=== PATIENT | male | born 1955 | race Caucasian/White ===

== ENCOUNTER 2016-09-13 15:23 | Emergency (ER) | payer MEDICARE ==
[2016-09-13 16:20] LABS: #Basophils 0.1 thou/uL (0.0-0.2); #Eosinphils 0.1 thou/uL (0.0-0.7); #Lymphocytes 1.2 thou/uL (1.20-3.40); #Monocytes 0.8 thou/uL (0.11-0.59); #Neutrophils 6.5 thou/uL (1.40-6.50); %Basophils 1.6 % (0.0-1.0); %Lymphocytes 13.6 % (21.0-51.0); %Monocytes 8.6 % (0.0-10.0); Hematocrit 44.8 % (42.0-52.0); Red Blood Cell (RBC) Count 5.22 mill/uL (4.70-6.10); White Blood Cell (WBC) Count 8.7 thou/uL (4.8-10.8)
[2016-09-13 16:34] LABS: ALT (SGPT) 33 U/L (0-55); AST (SGOT) 23 U/L (5-34); Alkaline Phosphatase 139 U/L (40-150); Anion Gap 16 mmol/L (10-20); BUN (Urea Nitrogen) 48 mg/dL (8.4-25.7); Bilirubin, Total 0.8 mg/dL (0.2-1.2); Calc. Creatinine Clearance 0 mL/min (70-130); Calcium 8.9 mg/dL (7.8-10.44); Carbon Dioxide 19 mmol/L (22-29); Chloride 102 mmol/L (98-107); Estimated GFR-MDRD 35; Globulin 3.4 g/dL (2.4-3.5); Protein, Total 6.9 g/dL (6.0-8.3)
[2016-09-13 17:04] LABS: Bilirubin Negative (Negative); Blood, Urine Trace (Negative); Glucose, Urine (Dipstick) 500 mg/dL (Negative); Ketone, Urine Negative (Negative); Nitrite Negative (Negative); Protein, Urine (Dipstick) > or equal to 300 mg/dL (Neg-Trace); Urobilinogen 0.2 mg/dL (0.2-1.0)
[2016-09-13 17:09] LABS: Bacteria/HPF Rare-Few HPF (None Seen); Squamous Epithelial None Seen HPF (0-3); WBC/HPF None Seen HPF (0-3)
[2016-09-13] MEDS ORDERED: Insulin Regular 300 UNITS/3 ML VIAL ONE (17:50)
--- NOTE | 2016-09-13 17:56 | RAD ---
PORTABLE CHEST: History: Dyspnea. FINDINGS: Heart size is borderline in size. Post op sternotomy changes are noted. A pacemaker is present. T he lungs are clear of infiltrates. IMPRESSION: Borderline heart size. No acute process. POS: [facility]
[2016-09-13 18:38] LABS: Troponin I 0.094 ng/mL (< 0.028)
--- NOTE | 2016-09-13 19:16 | ERRECORD ---
[facility] EMERGENCY RECORD HPI GENERAL (15:41 AGRE) CHIEF COMPLAINT: Patient presents for evaluation of SWELLING AND PAIN IN LEGS, HIGH BLOOD SUGAR. HISTORIAN: History provided by patient, History provided by patient's spouse, HOSPITALIZED FOR 1 WEEK ALL OF LAST WEEK DISCHARGED ON TUESDAY. WAS AT [facility]. HAD ALL HIS MEDS CHANGED BUT DOES NOT KNOW THE NAME OF THE NEW MEDS AND WHAT HE IS TAKING IT FOR. HAS SWELLING OF LEGS PRIOR RO ADMISSION TO HOSPITAL AND THE SWELLING HAD GONE DOWN BUT HAS COME BACK OVER THE PAST 2 DAYS. SAYS HIS BLOOD SUGAR HAS BEEN HIGH AND THE NEW MEDICATIONS ARE NOT WORKING. DID NOT CALL HIS PCP TODAY FOR FOLLOW UP. BUT CAME BACK TO ED BECAUSE WANTS TO BE IN THE HOSPITAL. MECHANISM OF INJURY: Unknown mechanism. LOCATION: No localizing symptoms. QUALITY: Pain is dull in nature, described as aching, described as BOTH LOWER LEGS OTHERWISE NO PAIN. SEVERITY: Maximum severity of symptoms moderate, Currently symptoms are moderate. TIME COURSE: Gradual onset of symptoms. ASSOCIATED WITH: No associated symptoms, Denies any other complaints. EXACERBATED BY: Patient's condition exacerbated by nothing. RELIEVED BY: Patient's condition relieved by nothing. ROS (15:44 AGRE) CONSTITUTIONAL: Historian denies chills, denies fever, denies weakness. EYES: Historian denies eye redness, denies vision changes. ENT: Historian denies sore throat, denies stridor. CARDIOVASCULAR: Historian denies chest pain, denies diaphoresis. RESPIRATORY: Historian denies cough, denies shortness of breath. GI: Historian denies abdominal pain, denies nausea, denies vomiting. MUSCULOSKELETAL: Historian denies back pain, denies neck pain. SWELLING OF FEET AND LEGS. SKIN: Historian denies skin changes, denies skin lesions. NEUROLOGIC: Historian denies confusion, denies dizziness, denies focal weakness, denies headache. HEMO/LYMPHATIC: Normal hematologic/lymphatic system review, Historian denies petechiae. PSYCHIATRIC: Negative psychiatric review of systems, Historian denies anxiety. PAST MEDICAL HISTORY (15:37 GHIA) MEDICAL HISTORY: Notes: as listed, , Past medical history includes cardiac history, myocardial infarction, Treated with stent placement, Number of stents: 1, since 2008, Past medical history includes history of diabetes, Past medical history includes history of hypertension. verified 09/04/16. MALE SURGICAL HISTORY: as listed, Surgical &a-1R&a+25V*p+0X*[id number]*c152B*c15G*c2P*p-0X&a-25V&a+1RName: Lito Walton : M60 MedRec: [id number] AcctNum: [id number] Prepared: TueSep 13, 2016 19:32 by Interface Page 1 of 5 pMD [facility] EMERGENCY RECORD history of coronary artery bypass graft surgery, three vessels, Date of surgery 2009., pacemaker placed due to heart failure in 2013 verified 09/04/16. PSYCHIATRIC HISTORY: No previous psychiatric history, No previous psychiatric history. verified 09/04/16. SOCIAL HISTORY: Social History includes lives with , Patient denies alcohol use, Patient denies drug use, Patient has no smoking history, Patient denies alcohol use, Patient denies drug use, Patient has no smoking history. verified 09/04/16. KNOWN ALLERGIES morphine Penicillins CURRENT MEDICATIONS glyBURIDE: TABLET : Strength - 5 mg : ORAL Patient Dose: 10 mg Oral once a day (in the morning).Last Taken: this a.m. (16:37 GHIA) hydrALAZINE: TABLET : Strength - 50 mg : ORAL Patient Dose: 50 mg Oral 3 times a day.Last Taken: this a.m. (16:38 GHIA) carvedilol: TABLET : Strength - 6.25 mg : ORAL Patient Dose: 6.25 mg Oral 2 times a day.Last Taken: this a.m. (16:39 GHIA) spironolactone: TABLET : Strength - 50 mg : ORAL Patient Dose: 50 mg Oral once a day (in the morning).Last Taken: this a.m. (16:43 GHIA) isosorbide dinitrate: TABLET : Strength - 20 mg : ORAL Patient Dose: 20 mg Oral 3 times a day.Last Taken: this a.m. (16:44 GHIA) furosemide: TABLET : Strength - 40 mg : ORAL Patient Dose: 40 mg Oral 2 times a day.Last Taken: this a.m. (16:45 GHIA) Aspirin Low Dose: TABLET, DELAYED RELEASE (ENTERIC COATED) : Strength - 81 mg : ORAL Patient Dose: 81 mg Oral once a day (in the morning).Last Taken: this a.m. (16:47 GHIA) pantoprazole: TABLET, DELAYED RELEASE (ENTERIC COATED) : Strength - 40 mg : ORAL Patient Dose: 40 mg Oral once a day (in the morning).Last Taken: this a.m. (16:49 GHIA) atorvastatin: TABLET : Strength - 10 mg : ORAL Patient Dose: 10 mg Oral once a day (at bedtime).Last &a-1R&a+25V*p+0X*[id number]*c152B*c15G*c2P*p-0X&a-25V&a+1RName: Lito Walton : M60 MedRec: [id number] AcctNum: [id number] Prepared: TueSep 13, 2016 19:32 by Interface Page 2 of 5 pMD [facility] EMERGENCY RECORD Taken: last night. (16:50 GHIA) Stool Softener: CAPSULE : Strength - 100 mg : ORAL Patient Dose: 100 mg Oral once a day (in the morning).Last Taken: this a.m. (16:50 GHIA) VITAL SIGNS VITAL SIGNS: BP: 141/88, Pulse: 97, Resp: 18, Pain: 5, O2 sat: 99 on RA, Time: 09/13/2016 15:38. (15:38 GHIA) Temp: 98.2 (Oral), Time: 09/13/2016 15:41. (15:41 GHIA) BP: 146/96, Pulse: 95, Resp: 19, O2 sat: 98 on Room Air, Time: 09/13/2016 16:30. (16:30 MSPE) BP: 140/95, Pulse: 96, Resp: 15, O2 sat: 97 on Room Air, Time: 09/13/2016 17:00. (17:00 MSPE) BP: 153/94, Pulse: 94, Resp: 15, O2 sat: 98 on Room Air, Time: 09/13/2016 17:30. (17:30 MSPE) BP: 160/99, Pulse: 99, Resp: 19, Temp: 98.5 (Oral), Pain: 5, O2 sat: 97 on Room Air, Time: 09/13/2016 18:00. (18:00 [facility]) PHYSICAL EXAM (15:44 AGRE) CONSTITUTIONAL: Vital signs reviewed, Patient afebrile, Respiratory rate normal, Patient appears non toxic, Patient appears pain free, Patient alert and oriented to person, place and time, NURSES NOTES REVIEWED. HEAD: Head exam included findings of head atraumatic, normocephalic. EYES: Eye exam included findings of eyelids normal to inspection, Extraocular muscles intact, Conjunctiva normal, Sclera normal. ENT: Ear exam normal, Nose exam normal, Mouth exam normal. NECK: Neck exam normal, Neck exam included findings of normal range of motion, no meningeal signs, no cervical adenopathy. RESPIRATORY CHEST: Respiratory and chest exam normal, Respiratory exam included findings of no respiratory distress, Breath sounds clear, No wheezing, No rales, No rhonchi, Breath sounds not diminished. CARDIOVASCULAR: Cardiovascular exam included findings of, rate tachycardic, rhythm regular, Heart sounds normal, normal S1, normal S2, no murmurs, no rub, no gallop, Point of maximal impulse normal, Carotids normal. ABDOMEN MALE: Abdominal exam normal, Abdominal exam included findings of abdomen nontender, Bowel sounds normal, Liver normal, Spleen normal, no distension, no mass. BACK: Back exam normal, Back exam included findings of normal inspection, range of motion normal. UPPER EXTREMITY: Upper extremity exam included findings of inspection normal, Range of motion normal. LOWER EXTREMITY: Range of motion normal, Motor strength normal, Sensation intact, Pedal pulse normal, Viridiana's negative, Edema present, to bilateral lower extremities, pitting, +3, no calf tenderness, no palpable cords. &a-1R&a+25V*p+0X*[id number]*c152B*c15G*c2P*p-0X&a-25V&a+1RName: Lito Walton : M60 MedRec: [id number] AcctNum: [id number] Prepared: TueSep 13, 2016 19:32 by Interface Page 3 of 5 pMD [facility] EMERGENCY RECORD NEURO: Neuro exam normal, Neuro exam findings include patient oriented to person, place and time, Speech normal, Gait normal, Memory normal, Cranial nerves intact, no focal motor deficits. SKIN: Skin exam normal, Skin exam included findings of skin warm, dry, and normal in color. LYMPHATIC: Lymphatic exam normal, Lymphatic exam included findings of cervical nodes normal. PSYCHIATRIC: Psychiatric exam normal, Normal affect. EKG INTERPRETATION (15:53 AGRE) 12 LEAD EKG INTERPRETATION: 12 lead EKG interpreted by Emergency Department Physician at time of study, 12 lead EKG shows normal sinus rhythm, Rate (beats per minute): 96, Conduction normal, T waves, [place] normal, Other findings include:, LEFT ATRIAL ENLARGEMENT, SMALL Q WAVE INFERIORLY, POOR R WAVE PROGRESSION V1 - 4, R'R V2, NON-SPECIFIC ST AND T CHANGES. RADIOLOGYINTERPRETATION (18:08 AGRE) BUCKLE COVERER: Preliminary review of x-rays by, Radiologist, CARDIOMEGALY. MEDICATION ADMINISTRATION SUMMARY Drug Name: NovoLIN R, Dose Ordered: 8 units, Route: Subcutaneous, Status: Given, Time: 17:59 09/13/2016, Detailed record available in Medication Service section. DOCTOR NOTES TEXT: DISCUSSED CASE WITH DR ONTIVEROS WHO WANTS HIM RETURNED TO [facility] FOR ADMISSION AND RE-EVALUATION. (18:10 AGRE) DISCUSSED RESULTS OF ED EXAM AND WORK UP WITH PATIENT AND FAMILY, DISCUSSED RETURNING TO [facility] FOR FURTEHR EVALUATION, THEY EXPRESSED UNDERSTANDING AND AGREEMENT. (18:10 AGRE) CASE DISCUSSED WITH DR CELESTIN WHO WILL ACCEPT PATIENT TO [facility]. (18:12 AGRE) PATIENT STATUS: Patient has improved since arrival to emergency department. (18:12 AGRE) PATIENT PLAN: The patient requires a transfer and will be transferred. (18:12 AGRE) DATA REVIEWED: Lab data reviewed, Xray data reviewed, Reviewed EKG, Old records obtained, Old records reviewed, Discussed with family, Discussed with consultants. (18:12 AGRE) PROBLEM LIST No recorded problems DIAGNOSIS (18:07 AGRE) FINAL: PRIMARY: RIGHT HEART FAILURE, ADDITIONAL: CHRONIC RENAL INSUFFICIENCY, ELEVATED D-DIMER, PERIPHERAL EDEMA, UNCONTROLLED TYPE 2 DIABETES. &a-1R&a+25V*p+0X*[id number]*c152B*c15G*c2P*p-0X&a-25V&a+1RName: Isabelle, Lito : M60 MedRec: [id number] AcctNum: [id number] Prepared: TueSep 13, 2016 19:32 by Interface Page 4 of 5 pMD [facility] EMERGENCY RECORD PRESCRIPTION No recorded prescriptions DISPOSITION PATIENT: Disposition Type: Transfer, Disposition: Transfer to [facility], Condition: Good. (18:04 AMOS) Patient left the department. (19:05 VLADISLAV) Lee: AMOS=MD Dread, Maikel LOOMIS=VANESSA Clemente, Ashley MSPE=VANESSA Herman, Valeria &a-1R&a+25V*p+0X*[id number]*c152B*c15G*c2P*p-0X&a-25V&a+1RName: Lito Walton : M60 MedRec: [id number] AcctNum: [id number] Prepared: TueSep 13, 2016 19:32 by Interface Page 5 of 5 pMD [facility]TDD
--- NOTE | 2016-09-13 19:23 | PICIS ---
[facility] EMERGENCY RECORD TRIAGE (15:31 GHIA) TRIAGE NOTES: Pt states sugar is high and BP high....recent discharge from [place]. (15:31 GHIA) PATIENT: NAME: Lito Walton, AGE: 60, GENDER: male, : Tue1955, TIME OF GREET: TueSep 13, 2016 15:24, PREFERRED LANGUAGE: Guyanese, ETHNICITY: Not or , ECODE BILLING MAP: [facility], SSN: [id number], Zip Code: [address], KG WEIGHT: 58.97, PHONE: , , , PERSON ID: [id number], PCP: Darrius RODRIGUEZ POLLACHI. (15:31 GHIA) COMPLAINT: BILATERAL LEG AND FEET SWELLING,ELEVATED BS AND BP. (15:31 GHIA) ADMISSION: URGENCY: 3 Urgent, ADMISSION SOURCE: Home, TRANSPORT: Walk-in, BED: TRIAGE. (15:31 GHIA) ASSESSMENT: Assessment: Pt with high sugar and high BP, Symptoms began 3 days ago. (15:37 GHIA) PAIN: Patient complains of pain described as, Location legs, Pain is constant. (15:37 GHIA) IMMUNIZATIONS: Flu vaccine up to date, Tetanus immunization up to date, Pneumococcal vaccine up to date. (15:37 GHIA) SIRS SCORING: Heart Rate 55-109 (0), Temp range 96.8-101.1 (0), respiratory rate 12-24 (0), Mental Status altered: no (0). (15:37 GHIA) TRIAGE SCREENING: Patient denies suicidal ideation, Patient denies presence of domestic violence. (15:37 GHIA) TREATMENTS IN PROGRESS: Treatments given Prehospital: Pt took morning meds. (15:37 GHIA) PROVIDERS: TRIAGE NURSE: Ashley Clemente RN. (15:31 GHIA) KNOWN ALLERGIES morphine Penicillins CURRENT MEDICATIONS glyBURIDE: TABLET : Strength - 5 mg : ORAL Patient Dose: 10 mg Oral once a day (in the morning).Last Taken: this a.m. (16:37 GHIA) hydrALAZINE: TABLET : Strength - 50 mg : ORAL Patient Dose: 50 mg Oral 3 times a day.Last Taken: this a.m. (16:38 GHIA) carvedilol: TABLET : Strength - 6.25 mg : ORAL Patient Dose: 6.25 mg Oral 2 times a day.Last Taken: this a.m. (16:39 GHIA) spironolactone: TABLET : Strength - 50 mg : ORAL Patient Dose: 50 mg Oral once a day (in the morning).Last Taken: this a.m. (16:43 GHIA) isosorbide dinitrate: &a-1R&a+25V*p+0X*o0879O*c152B*c15G*c2P*p-0X&a-25V&a+1RName: Isabelle Lito : M60 MedRec: [id number] AcctNum: [id number] Prepared: TueSep 13, 2016 19:39 by Interface Page 1 [facility] 11 [facility] : Strength - 20 mg : ORAL Patient Dose: 20 mg Oral 3 times a day.Last Taken: this a.m. (16:44 GHIA) furosemide: TABLET : Strength - 40 mg : ORAL Patient Dose: 40 mg Oral 2 times a day.Last Taken: this a.m. (16:45 GHIA) Aspirin Low Dose: TABLET, DELAYED RELEASE (ENTERIC COATED) : Strength - 81 mg : ORAL Patient Dose: 81 mg Oral once a day (in the morning).Last Taken: this a.m. (16:47 GHIA) pantoprazole: TABLET, DELAYED RELEASE (ENTERIC COATED) : Strength - 40 mg : ORAL Patient Dose: 40 mg Oral once a day (in the morning).Last Taken: this a.m. (16:49 GHIA) atorvastatin: TABLET : Strength - 10 mg : ORAL Patient Dose: 10 mg Oral once a day (at bedtime).Last Taken: last night. (16:50 GHIA) Stool Softener: CAPSULE : Strength - 100 mg : ORAL Patient Dose: 100 mg Oral once a day (in the morning).Last Taken: this a.m. (16:50 GHIA) VITAL SIGNS VITAL SIGNS: BP: 141/88, Pulse: 97, Resp: 18, Pain: 5, O2 sat: 99 on RA, Time: 09/13/2016 15:38. (15:38 GHIA) Temp: 98.2 (Oral), Time: 09/13/2016 15:41. (15:41 GHIA) BP: 146/96, Pulse: 95, Resp: 19, O2 sat: 98 on Room Air, Time: 09/13/2016 16:30. (16:30 MSPE) BP: 140/95, Pulse: 96, Resp: 15, O2 sat: 97 on Room Air, Time: 09/13/2016 17:00. (17:00 MSPE) BP: 153/94, Pulse: 94, Resp: 15, O2 sat: 98 on Room Air, Time: 09/13/2016 17:30. (17:30 MSPE) BP: 160/99, Pulse: 99, Resp: 19, Temp: 98.5 (Oral), Pain: 5, O2 sat: 97 on Room Air, Time: 09/13/2016 18:00. (18:00 GHIA) NURSING ASSESSMENT: HEAD-TO-TOE (15:38 GHIA) CONSTITUTIONAL: Patient arrives ambulatory, Gait steady, History obtained from patient, Patient appears comfortable, Patient cooperative, Patient alert, Oriented to person, place and time, Skin warm, Skin dry, Skin normal in color, Mucous membranes pink, Mucous membranes moist, Patient is well-groomed, Patient complains of Edema feet and high glucose, Pt in room in bed in gown. Assess. Plan of care of pt in Er discussed. PAIN: aching pain, tami feet, Onset of pain 3 days, constant, on a scale 0-10 patient rates pain as 5. SKIN: Skin assessment findings include skin warm, Skin dry, Skin normal in color, Inspection findings include swelling, to 3+ edema, Notes: intact. &a-1R&a+25V*p+0X*q2990T*c152B*c15G*c2P*p-0X&a-25V&a+1RName: Lito Walton : M60 MedRec: [id number] AcctNum: [id number] Prepared: TueSep 13, 2016 19:39 by Interface Page 2 of 11 pMD [facility] EMERGENCY RECORD RESPIRATORY/CHEST: Respiratory assessment findings include respiratory effort easy. CARDIOVASCULAR: Cardiovascular assessment findings include heart rate normal. ABDOMEN: Abdomen assessment findings include abdomen symmetrical, no associated nausea, no associated vomiting, no associated diarrhea, no associated constipation. GENITOURINARY MALE: no associated urinary complaints. NOTES: Emotional support needed and given, Patient tolerated procedure well. SAFETY: Side rails up, Cart/Stretcher in lowest position, Family at bedside, Call light within reach, Hospital ID band on. VITAL SIGNS: BP: 141, / 88, Pulse: 97, Resp: 18, Pain: 5, O2 sat: 99, on: RA. NURSING PROCEDURE: ELIMINATION (17:40 GHIA) PATIENT IDENTIFIER: Patient actively involved in identification process, Patient's identity verified by patient stating name, Patient's identity verified by hospital ID bracelet. ELIMINATION: Patient given urinal, Urine output (mL) 125 ml dark yellow. NOTES: Patient tolerated procedure well. NURSING PROCEDURE: IV (16:00 GHIA) PATIENT IDENITIFIER: Patient actively involved in identification process, Patient's identity verified by patient stating name, Patient's identity verified by hospital ID bracelet. IV SITE 1: IV established, to the right forearm, using a 20 gauge catheter, in two attempts, IV site prepped with chloraprep, Labs drawn at time of placement, labeled in the presence of the patient and sent to lab. FOLLOW-UP SITE 1: After procedure, 2x3 ensure dressing applied, After procedure, no swelling at IV site, After procedure, no redness at IV site. NOTES: Emotional support needed and given, Patient tolerated procedure well. SAFETY: Side rails up, Cart/Stretcher in lowest position, Family at bedside, Call light within reach, Hospital ID band on. NURSING PROCEDURE: NURSE NOTES NURSES NOTES: Patient in no apparent distress, Assistance offered to patient, Notes: Er Dr at bedside. (15:37 GHIA) Patient in no apparent distress, Assistance offered to patient, Notes: Ultrasound at bedside. (16:30 GHIA) Notes: Ultrasound completed. cat scan technologist notified CXR ordered. (16:50 GHIA) Notes: So x 2 at bedside cheerful and attentive to pt. (17:04 GHIA) Patient in no apparent distress, Assistance offered to patient, Patient is awaiting results, Notes: Er Dr Canada on phone wi Dr Ontiveros regarding transfer of pt. (18:00 GHIA) &a-1R&a+25V*p+0X*d7317D*c152B*c15G*c2P*p-0X&a-25V&a+1RName: Lito Walton : M60 MedRec: [id number] AcctNum: [id number] Prepared: TueSep 13, 2016 19:39 by Interface Page 3 of 11 pMD [facility] EMERGENCY RECORD Notes: Per VOv Dr Canada...Valeria Rn calling transfer center at [facility] regarding pt to be transfer. EMS notifed of pending transfer. Ev Rn notifed of pending transfer,. (18:08 GHIA) Notes: EMs staff at bedside; report given with emphasis on insulin given at 1800. (18:33 GHIA) Notes: Pt left Er via stretcher with EMS...pt alert and cheerful and walked from ER bed to EMS stretcher. (18:37 GHIA) NURSING PROCEDURE: TRANSFER (18:37 GHIA) TRANSFER: Reason for transfer need for specialized care, Diagnosis: right sided heart failure;chronic renal insuff, Report called to receiving facility, Trista RN, Provided opportunity to answer questions, Report called at 1900...late due to assisting with pedi pt in room 4. BELONGINGS: medications. NOTES: Patient tolerated procedure well. ORDER DETAILS Order Name: B type Natriuretic Peptide, Status: Active, Time: 15:40 09/13/2016, User: AMOS, - Ordered for: MD Canada Andrea, - Entered by: MD Canada Andrea - TueSep 13, 2016 15:40, - Quantity: 1, Order Name: Beta-Hydroxybutyrate (Ketone), Status: Active, Time: 17:59 09/13/2016, User: AMOS, - Ordered for: MD [place] Andrea, - Entered by: MD [place] Andrea - TueSep 13, 2016 17:59, - Quantity: 1, Order Name: CBC with Differential, Status: Active, Time: 15:40 09/13/2016, User: AMOS, - Ordered for: MD [place] Andrea, - Entered by: MD [place] Andrea - TueSep 13, 2016 15:40, - Quantity: 1, Order Name: Comprehensive Metabolic Panel, Status: Active, Time: 15:40 09/13/2016, User: AMOS, - Ordered for: MD [place] Andrea, - Entered by: MD [place] Andrea - Glo Sep 13, 2016 15:40, - Quantity: 1, Order Name: D-Dimer (Quantitative), Status: Active, Time: 15:40 09/13/2016, User: AMOS, - Ordered for: MD [place] Andrea, - Entered by: MD [place] Andrea - Glo Sep 13, 2016 15:40, - Quantity: 1, Order Name: EKG 12 Lead in Emergency Room, Status: Active, Time: 15:40 09/13/2016, User: AMOS, - Ordered for: MD [place] Andrea, - Entered by: MD [place] Andrea - Glo Sep 13, 2016 15:40, - Quantity: 1, Order Name: SALINE LOCK, Status: Done, Time: 16:13 09/13/2016, User: VLADISLAV, &a-1R&a+25V*p+0X*p3030T*c152B*c15G*c2P*p-0X&a-25V&a+1RName: Lito Walton : M60 MedRec: [id number] AcctNum: [id number] Prepared: TueSep 13, 2016 19:39 by Interface Page 4 of 11 [facility] EMERGENCY RECORD - Ordered for: MD [place] Andrea, - Entered by: MD [place] Andrea - Glo Sep 13, 2016 15:40, - Quantity: 1, Order Name: Troponin - I, Status: Active, Time: 18:09 09/13/2016, User: AMOS, - Ordered for: MD [place] Andrea, - Entered by: MD [place] Andrea - Glo Sep 13, 2016 18:09, - Quantity: 1, Order Name: Urinalysis w/ Rflx Microscopic, Status: Active, Time: 15:40 09/13/2016, User: AMOS, - Ordered for: MD [place] Andrea, - Entered by: MD [place] Andrea - Glo Sep 13, 2016 15:40, - Quantity: 1, Order Name: US Venous Doppler Lt Unilat, Status: Canceled, Time: 16:17 09/13/2016, User: System, - Ordered for: MD [place] Andrea, - Entered by: MD Canada Andrea - TueSep 13, 2016 15:40, - Quantity: 1, Order Name: US Venous Doppler Rt Unilat, Status: Canceled, Time: 16:17 09/13/2016, User: System, - Ordered for: MD [place] Andrea, - Entered by: MD [place] Andrea - TueSep 13, 2016 15:40, - Quantity: 1, Order Name: XR Chest 1 View Portable, Status: Active, Time: 15:40 09/13/2016, User: AMOS, - Ordered for: MD [place] Andrea, - Entered by: MD Canada Andrea - TueSep 13, 2016 15:40, - Quantity: 1. MEDICATION ADMINISTRATION SUMMARY Drug Name: NovoLIN R, Dose Ordered: 8 units, Route: Subcutaneous, Status: Given, Time: 17:59 09/13/2016, Detailed record available in Medication Service section. MEDICATION SERVICE (17:59 [facility]) NovoLIN R: Order: NovoLIN R (insulin regular, human) - Dose: 8 units : Subcutaneous Ordered by: Maikel Canada MD Entered by: Maikel Canada MD TueSep 13, 2016 17:42 , Acknowledged by: Ashley Clemente RN TueSep 13, 2016 17:49, Co-signed by: Valeria Herman RN TueSep 13, 2016 17:58 Documented as given by: Ashley Clemente RN TueSep 13, 2016 17:59 Patient, Medication, Dose, Route and Time verified prior to administration. Amount given: 8 units, Amount wasted: 0, Medication administered to right upper arm, Correct patient, time, route, dose and medication confirmed prior to administration, Patient advised of actions and side-effects prior to administration, Allergies confirmed and medications reviewed prior to administration, Emotional support needed and given, Patient tolerated procedure well, Advised not to &a-1R&a+25V*p+0X*j6917M*c152B*c15G*c2P*p-0X&a-25V&a+1RName: Lito Walton : M60 MedRec: [id number] AcctNum: [id number] Prepared: TueSep 13, 2016 19:39 by Interface Page 5 of 11 pMD [facility] EMERGENCY RECORD ambulate without assistance, Patient in position of comfort, Side rails up, Cart in lowest position, Family at bedside, Call light in reach, dose checked with Valeria Miramontes prior to med given. HPI GENERAL (15:41 AGRE) CHIEF COMPLAINT: Patient presents for evaluation of SWELLING AND PAIN IN LEGS, HIGH BLOOD SUGAR. HISTORIAN: History provided by patient, History provided by patient's spouse, HOSPITALIZED FOR 1 WEEK ALL OF LAST WEEK DISCHARGED ON TUESDAY. WAS AT [facility]. HAD ALL HIS MEDS CHANGED BUT DOES NOT KNOW THE NAME OF THE NEW MEDS AND WHAT HE IS TAKING IT FOR. HAS SWELLING OF LEGS PRIOR RO ADMISSION TO HOSPITAL AND THE SWELLING HAD GONE DOWN BUT HAS COME BACK OVER THE PAST 2 DAYS. SAYS HIS BLOOD SUGAR HAS BEEN HIGH AND THE NEW MEDICATIONS ARE NOT WORKING. DID NOT CALL HIS PCP TODAY FOR FOLLOW UP. BUT CAME BACK TO ED BECAUSE WANTS TO BE IN THE HOSPITAL. MECHANISM OF INJURY: Unknown mechanism. LOCATION: No localizing symptoms. QUALITY: Pain is dull in nature, described as aching, described as BOTH LOWER LEGS OTHERWISE NO PAIN. SEVERITY: Maximum severity of symptoms moderate, Currently symptoms are moderate. TIME COURSE: Gradual onset of symptoms. ASSOCIATED WITH: No associated symptoms, Denies any other complaints. EXACERBATED BY: Patient's condition exacerbated by nothing. RELIEVED BY: Patient's condition relieved by nothing. ROS (15:44 AGRE) CONSTITUTIONAL: Historian denies chills, denies fever, denies weakness. EYES: Historian denies eye redness, denies vision changes. ENT: Historian denies sore throat, denies stridor. CARDIOVASCULAR: Historian denies chest pain, denies diaphoresis. RESPIRATORY: Historian denies cough, denies shortness of breath. GI: Historian denies abdominal pain, denies nausea, denies vomiting. MUSCULOSKELETAL: Historian denies back pain, denies neck pain. SWELLING OF FEET AND LEGS. SKIN: Historian denies skin changes, denies skin lesions. NEUROLOGIC: Historian denies confusion, denies dizziness, denies focal weakness, denies headache. HEMO/LYMPHATIC: Normal hematologic/lymphatic system review, Historian denies petechiae. PSYCHIATRIC: Negative psychiatric review of systems, Historian denies anxiety. PAST MEDICAL HISTORY (15:37 GHIA) MEDICAL HISTORY: Notes: as listed, , Past medical history includes cardiac history, myocardial infarction, Treated with &a-1R&a+25V*p+0X*j3176M*c152B*c15G*c2P*p-0X&a-25V&a+1RName: Lito Walotn : M60 MedRec: [id number] AcctNum: [id number] Prepared: TueSep 13, 2016 19:39 by Interface Page 6 of 11 [facility] EMERGENCY RECORD stent placement, Number of stents: 1, since 2008, Past medical history includes history of diabetes, Past medical history includes history of hypertension. verified 09/04/16. MALE SURGICAL HISTORY: as listed, Surgical history of coronary artery bypass graft surgery, three vessels, Date of surgery 2009., pacemaker placed due to heart failure in 2013 verified 09/04/16. PSYCHIATRIC HISTORY: No previous psychiatric history, No previous psychiatric history. verified 09/04/16. SOCIAL HISTORY: Social History includes lives with , Patient denies alcohol use, Patient denies drug use, Patient has no smoking history, Patient denies alcohol use, Patient denies drug use, Patient has no smoking history. verified 09/04/16. PHYSICAL EXAM (15:44 AGRE) CONSTITUTIONAL: Vital signs reviewed, Patient afebrile, Respiratory rate normal, Patient appears non toxic, Patient appears pain free, Patient alert and oriented to person, place and time, NURSES NOTES REVIEWED. HEAD: Head exam included findings of head atraumatic, normocephalic. EYES: Eye exam included findings of eyelids normal to inspection, Extraocular muscles intact, Conjunctiva normal, Sclera normal. ENT: Ear exam normal, Nose exam normal, Mouth exam normal. NECK: Neck exam normal, Neck exam included findings of normal range of motion, no meningeal signs, no cervical adenopathy. RESPIRATORY CHEST: Respiratory and chest exam normal, Respiratory exam included findings of no respiratory distress, Breath sounds clear, No wheezing, No rales, No rhonchi, Breath sounds not diminished. CARDIOVASCULAR: Cardiovascular exam included findings of, rate tachycardic, rhythm regular, Heart sounds normal, normal S1, normal S2, no murmurs, no rub, no gallop, Point of maximal impulse normal, Carotids normal. ABDOMEN MALE: Abdominal exam normal, Abdominal exam included findings of abdomen nontender, Bowel sounds normal, Liver normal, Spleen normal, no distension, no mass. BACK: Back exam normal, Back exam included findings of normal inspection, range of motion normal. UPPER EXTREMITY: Upper extremity exam included findings of inspection normal, Range of motion normal. LOWER EXTREMITY: Range of motion normal, Motor strength normal, Sensation intact, Pedal pulse normal, Viridiana's negative, Edema present, to bilateral lower extremities, pitting, +3, no calf tenderness, no palpable cords. NEURO: Neuro exam normal, Neuro exam findings include patient oriented to person, place and time, Speech normal, Gait normal, Memory normal, Cranial nerves intact, no focal motor deficits. SKIN: Skin exam normal, Skin exam included findings of skin warm, &a-1R&a+25V*p+0X*m4106L*c152B*c15G*c2P*p-0X&a-25V&a+1RName: IsabelleLito : M60 MedRec: [id number] AcctNum: [id number] Prepared: TueSep 13, 2016 19:39 by Interface Page 7 of 11 pMD [facility] EMERGENCY RECORD dry, and normal in color. LYMPHATIC: Lymphatic exam normal, Lymphatic exam included findings of cervical nodes normal. PSYCHIATRIC: Psychiatric exam normal, Normal affect. LAB INTERPRETATION (18:08 AGRE) INTERPRETATION: Chemistry abnormal, Sodium decreased, Potassium elevated, Glucose elevated, BUN elevated, Creatinine elevated, Bicarbonate decreased, Cardiac enzymes abnormal, BNP elevated, Urinalysis abnormal, positive for erythrocytes, positive for glucose, positive for protein. EVENTS TRANSFER: Triage to Emergency Triage. (TueSep 13, 2016 15:31 GHIA) Emergency Triage to Emergency Room -03. (15:31 GHIA) Removed from Emergency Emergency Room -03. (19:05 GHIA) RADIOLOGYINTERPRETATION (18:08 AGRE) IN PROCESS INSPECTOR: Preliminary review of x-rays by, Radiologist, CARDIOMEGALY. EKG INTERPRETATION (15:53 AGRE) 12 LEAD EKG INTERPRETATION: 12 lead EKG interpreted by Emergency Department Physician at time of study, 12 lead EKG shows normal sinus rhythm, Rate (beats per minute): 96, Conduction normal, T waves, [place] normal, Other findings include:, LEFT ATRIAL ENLARGEMENT, SMALL Q WAVE INFERIORLY, POOR R WAVE PROGRESSION V1 - 4, R'R V2, NON-SPECIFIC ST AND T CHANGES. O2SAT INTERPRETATION (17:56 AGRE) O2SAT: Continuous pulse oximetry, Oxygen saturation 98%, on room air, Oxygen saturation interpretation: Normal, No intervention required. DOCTOR NOTES TEXT: DISCUSSED CASE WITH DR ONTIVEROS WHO WANTS HIM RETURNED TO [facility] FOR ADMISSION AND RE-EVALUATION. (18:10 AGRE) DISCUSSED RESULTS OF ED EXAM AND WORK UP WITH PATIENT AND FAMILY, DISCUSSED RETURNING TO [facility] FOR FURTEHR EVALUATION, THEY EXPRESSED UNDERSTANDING AND AGREEMENT. (18:10 AGRE) CASE DISCUSSED WITH DR CELESTIN WHO WILL ACCEPT PATIENT TO [facility]. (18:12 AGRE) PATIENT STATUS: Patient has improved since arrival to emergency department. (18:12 AGRE) PATIENT PLAN: The patient requires a transfer and will be transferred. (18:12 AGRE) DATA REVIEWED: Lab data reviewed, Xray data reviewed, Reviewed EKG, Old records obtained, Old records reviewed, Discussed with &a-1R&a+25V*p+0X*z4573H*c152B*c15G*c2P*p-0X&a-25V&a+1RName: Lito Walton : M60 MedRec: [id number] AcctNum: [id number] Prepared: TueSep 13, 2016 19:39 by Interface Page 8 of 11 pMD [facility] EMERGENCY RECORD family, Discussed with consultants. (18:12 AGRE) PROBLEM LIST No recorded problems DIAGNOSIS (18:07 AGRE) FINAL: PRIMARY: RIGHT HEART FAILURE, ADDITIONAL: CHRONIC RENAL INSUFFICIENCY, ELEVATED D-DIMER, PERIPHERAL EDEMA, UNCONTROLLED TYPE 2 DIABETES. DISPOSITION PATIENT: Disposition Type: Transfer, Disposition: Transfer to [facility], Condition: Good. (18:04 AGRE) Patient left the department. (19:05 GHIA) PRESCRIPTION No recorded prescriptions IMAGING *EKG: Image captured from scanner. (17:05 MSPE) *MEMORANDUM OF TRANSFER: Image captured from scanner. (18:19 REZE) CONSENTS: Image captured from scanner. (18:19 REZE) *DISCHARGE INSTRUCTIONS RECEIPT: Image captured from scanner. (18:39 REZE) *SUPPLY CHARGE SHEET: Image captured from scanner. (19:10 MSPE) ADMIN (19:26 AGRE) DIGITAL SIGNATURE: MD [place] Andrea. RESULTS LABORATORY: Urine Microscopic Collection DT: TueSep 13, 2016 17:01, RBC/HPF 4-6 HPF, Range (0-3), WBC/HPF None Seen HPF, Range (0-3), Squamous Epithelial None Seen HPF, Range (0-3), Bacteria/HPF Rare-Few HPF, Range (None Seen). (18:07 AGRE) Urinalysis w/ Rflx Microscopic Collection DT: TueSep 13, 2016 17:01, Color Yellow , Range (Yellow), Clarity Hazy , Range (Clear), Specific [place], Urine 1.025 , Range (1.005-1.030), pH, Urine 6.0 , Range (5.0-9.0), Leukocyte Negative , Range (Negative), Nitrite Negative , Range (Negative), *Protein, Urine (Dipstick) > or equal to 300 - mg/dL, * H , Range (Neg-Trace), *Glucose, Urine (Dipstick) 500 - H mg/dL, Range (Negative), Ketone, Urine Negative mg/dL, Range (Negative), Urobilinogen 0.2 mg/dL, Range (0.2-1.0), Bilirubin Negative , Range (Negative), *Blood, Urine Trace - H , Range (Negative). (18:07 AGRE) &a-1R&a+25V*p+0X*j7622X*c152B*c15G*c2P*p-0X&a-25V&a+1RName: Lito Walton : M60 MedRec: [id number] AcctNum: [id number] Prepared: TueSep 13, 2016 19:39 by Interface Page 9 of 11 [facility] EMERGENCY RECORD B type Natriuretic Peptide Collection DT: TueSep 13, 2016 16:10, *B type Natriuretic Peptide 1940.0 - H pg/mL, Range (0-100). (18:07 AGRE) D-Dimer (Quantitative) Collection DT: TueSep 13, 2016 16:10, *D-Dimer Test 0.85 - H *mcg/mL, Range (0.27-0.43), * Reference Range Units: mcg/mL of fibrinogen equivalent, units(FEU) Based upon a retrospective study of [facility] patients in December 2005, a result of Less than 0.44 mcg/mL FEU is, predictive of the absence of a DVT or PE. . (18:07 AGRE) Comprehensive Metabolic Panel Collection DT: TueSep 13, 2016 16:10, *Sodium 132 - L mmol/L, Range (136-145), *Potassium 5.2 - H mmol/L, Range (3.5-5.1), Chloride 102 mmol/L, Range (98-107), *Carbon Dioxide 19 - L mmol/L, Range (22-29), Anion Gap 16 mmol/L, Range (10-20), *BUN (Urea Nitrogen) 48 - H mg/dL, Range (8.4-25.7), *Creatinine 1.95 - H mg/dL, Range (0.7-1.3), Estimated GFR-MDRD 35 , Reference Range for Estimated GFR: Greater than 90, mL/min/1.73 m2 NOTE: The MDRD equation has not been validated for use, with the elderly (over 70 years of age), women, patients with, serious comorbid condition or persons with extremes of body size, muscle, mass, or nutritional status. , *Glucose 380 - H mg/dL, Range (70-105), Calcium 8.9 mg/dL, Range (7.8-10.44), Bilirubin, Total 0.8 mg/dL, Range (0.2-1.2), Protein, Total 6.9 g/dL, Range (6.0-8.3), NOTE: Plasma values are generally 0.3 to 0.5 g/dL higher than serum values, due to the presence of fibrinogen. , Albumin 3.5 g/dL, Range (3.5-5.0), Globulin 3.4 g/dL, Range (2.4-3.5), *Alb/Glob Ratio 1.0 - L g/dL, Range (1.2-2.2), Alkaline Phosphatase 139 U/L, Range (40-150), AST (SGOT) 23 U/L, Range (5-34), ALT (SGPT) 33 U/L, Range (0-55). (18:07 AGRE) CBC with Differential Collection DT: TueSep 13, 2016 16:10, White Blood Cell (WBC) Count 8.7 thou/uL, Range (4.8-10.8), Red Blood Cell (RBC) Count 5.22 mill/uL, Range (4.70-6.10), *Hemoglobin 13.9 - L g/dL, Range (14.0-18.0), Hematocrit 44.8 %, Range (42.0-52.0), Mean Corpuscular Volume 85.8 fl, Range (80.0-94.0), *Mean Corpuscular Hemoglobin 26.7 - L pg, Range (27.0-31.0), *Mean Corpuscular HGB CONC 31.1 - L g/dL, Range (32.0-36.0), RBC Distribution Width 12.8 %, Range (11.5-14.5), &a-1R&a+25V*p+0X*s7132P*c152B*c15G*c2P*p-0X&a-25V&a+1RName: Lito Walton : M60 MedRec: [id number] AcctNum: [id number] Prepared: TueSep 13, 2016 19:39 by Interface Page 10 of 11 pMD [facility] EMERGENCY RECORD Platelet Count 291 thou/uL, Range (130-400), Mean Platelet Volume 10.0 fL, Range (7.4-10.4), *%Neutrophils 75.1 - H %, Range (42.0-75.0), *%Lymphocytes 13.6 - L %, Range (21.0-51.0), %Monocytes 8.6 %, Range (0.0-10.0), %Eosinophils 1.0 %, Range (0.0-10.0), *%Basophils 1.6 - H %, Range (0.0-1.0), #Neutrophils 6.5 thou/uL, Range (1.40-6.50), #Lymphocytes 1.2 thou/uL, Range (1.20-3.40), *#Monocytes 0.8 - H thou/uL, Range (0.11-0.59), #Eosinphils 0.1 thou/uL, Range (0.0-0.7), #Basophils 0.1 thou/uL, Range (0.0-0.2). (18:07 AGRE) Beta-Hydroxybutyrate (Ketone) Collection DT: TueSep 13, 2016 18:14, *Beta-Hydroxybutyrate (Ketone) 0.32 - H mmol/L, Range (0.02-0.27). (18:37 AGRE) Lee: AGRE=MD Dread, Maikel LOOMIS=VANESSA Clemente, Ashley MSPE=VANESSA Herman, Valeria KABA=VANESSA Landis, Ev &a-1R&a+25V*p+0X*d1057O*c152B*c15G*c2P*p-0X&a-25V&a+1RName: Lito Walton : [id number] MedRec: [id number] AcctNum: [id number] Prepared: TueSep 13, 2016 19:39 by Interface Page 11 of 11 pMD MTDD
--- NOTE | 2016-09-14 10:13 | ULT ---
ULTRASOUND WITH DOPPLER DUPLEX VENOUS LOWER EXTREMITY BILATERAL CPT: 07422 ICD-10-PCS: B54D HISTORY: Bilateral lower extremity edema and pain for 1 week. TECHNIQUE: Color flow Doppler, spectral waveform analysis of pulsed Doppler, and jimenez-scale imaging with compre ssion and augmentation, were used to evaluate the bilateral common femoral, femoral, popliteal, post erior tibial, and superficial femoral, veins; and the proximal portions of the profunda femoral and greater saphenous, veins. FINDINGS: There is appropriate compressibility and flow within the imaged deep vein system of each lower extre mity. IMPRESSION: No deep venous thrombosis. POS: [facility]
== END 2016-09-13 18:37 | disposition short-term general hospital (02) ==
LOC: NAV ERS 15:23
DX: I50.9 Heart failure, unspecified (principal); R60.0 Localized edema; E11.22 Type 2 diabetes mellitus with diabetic chronic kidney disease; I12.9 Hypertensive chronic kidney disease with stage 1 through stage 4 chronic kidney disease, or unspecified chronic kidney disease; N18.9 Chronic kidney disease, unspecified; R79.1 Abnormal coagulation profile; I25.2 Old myocardial infarction
CPT/HCPCS: 71010; 80053; 81003; 81015; 82010; 83880; 84484; 85025; 85379; 93005; 93970; 96372; J1815

== ENCOUNTER 2016-10-08 08:34 | Outpatient (CLI) | payer MEDICARE ==
[2016-10-08 12:31] LABS: Anion Gap 15 mmol/L (10-20); BUN (Urea Nitrogen) 34 mg/dL (8.4-25.7); Calc. Creatinine Clearance 0 mL/min (70-130); Carbon Dioxide 23 mmol/L (22-29); Chloride 104 mmol/L (98-107); Estimated GFR-MDRD 49; Hemoglobin A1c 10.2 % (4.0-6.0)
== END 2016-10-08 08:35 ==
LOC: NAVSJIPCSP 08:34
PROVIDERS: ATTEND Internal Medicine
DX: E11.22 Type 2 diabetes mellitus with diabetic chronic kidney disease (principal); I13.10 Hypertensive heart and chronic kidney disease without heart failure, with stage 1 through stage 4 chronic kidney disease, or unspecified chronic kidney disease; N18.3 Chronic kidney disease, stage 3 (moderate)
CPT/HCPCS: 36415; 80048; 83036

== ENCOUNTER 2016-11-10 08:37 | Outpatient (CLI) | payer MEDICARE ==
[2016-11-10 12:56] LABS: Anion Gap 17 mmol/L (10-20); BUN (Urea Nitrogen) 25 mg/dL (8.4-25.7); Calc. Creatinine Clearance 0 mL/min (70-130); Calcium 9.6 mg/dL (7.8-10.44); Carbon Dioxide 24 mmol/L (23-31); Chloride 102 mmol/L (98-107); Estimated GFR-MDRD 60; Glucose 92 mg/dL (80-115); Potassium 3.4 mmol/L (3.5-5.1); Sodium 140 mmol/L (136-145)
== END 2016-11-10 08:38 ==
LOC: NAVSJIPCSP 08:37
PROVIDERS: ATTEND Internal Medicine
DX: N18.3 Chronic kidney disease, stage 3 (moderate) (principal)
CPT/HCPCS: 36415; 80048

== ENCOUNTER 2016-12-30 09:30 | Outpatient (CLI) | payer MEDICARE ==
[2016-12-30 12:47] LABS: Hemoglobin A1c 5.9 % (4.0-6.0)
[2016-12-30 13:05] LABS: Anion Gap 19 mmol/L (10-20); BUN (Urea Nitrogen) 23 mg/dL (8.4-25.7); Calc. Creatinine Clearance 0 mL/min (70-130); Calcium 10.5 mg/dL (7.8-10.44); Carbon Dioxide 22 mmol/L (23-31); Chloride 103 mmol/L (98-107); Cholesterol 189 mg/dl (< 200 Desired); Estimated GFR-MDRD 56; Glucose 119 mg/dL (80-115); HDL Cholesterol 47 mg/dL (>60 Neg Risk); LDL Cholesterol, Calculated 133 mg/dL; Potassium 4.2 mmol/L (3.5-5.1); Sodium 140 mmol/L (136-145); Triglycerides 44 mg/dL (Less than 150)
== END 2016-12-30 09:31 ==
LOC: NAVSJIPCSP 09:30
PROVIDERS: ATTEND Internal Medicine
DX: E78.5 Hyperlipidemia, unspecified (principal); E11.59 Type 2 diabetes mellitus with other circulatory complications; I11.9 Hypertensive heart disease without heart failure
CPT/HCPCS: 36415; 80048; 80061; 83036

== ENCOUNTER 2017-03-31 08:32 | Outpatient (CLI) | payer MEDICARE ==
[2017-03-31 12:59] LABS: Anion Gap 14 mmol/L (10-20); BUN (Urea Nitrogen) 31 mg/dL (8.4-25.7); Calc. Creatinine Clearance 0 mL/min (70-130); Calcium 9.7 mg/dL (7.8-10.44); Carbon Dioxide 31 mmol/L (23-31); Cardiac Risk 6.1 (Less than 4.5); Chloride 100 mmol/L (98-107); Cholesterol 237 mg/dl (< 200 Desired); Estimated GFR-MDRD 47; Glucose 171 mg/dL (80-115); HDL Cholesterol 39 mg/dL (>60 Neg Risk); LDL Cholesterol, Calculated 173 mg/dL; Potassium 4.7 mmol/L (3.5-5.1); Sodium 140 mmol/L (136-145); Triglycerides 127 mg/dL (Less than 150)
[2017-03-31 13:11] LABS: Hemoglobin A1c 6.6 % (4.0-6.0)
== END 2017-03-31 08:33 | disposition home or self-care (01) ==
LOC: NAVSJIPCSP 08:32
PROVIDERS: ATTEND Internal Medicine
DX: Z12.11 Encounter for screening for malignant neoplasm of colon (principal); K21.9 Gastro-esophageal reflux disease without esophagitis; E78.5 Hyperlipidemia, unspecified; I11.9 Hypertensive heart disease without heart failure; E11.59 Type 2 diabetes mellitus with other circulatory complications; Z79.899 Other long term (current) drug therapy
CPT/HCPCS: 36415; 80048; 80061; 83036

== ENCOUNTER 2019-02-23 14:19 | Inpatient (IN) | payer MEDICARE ==
[2019-02-23 15:05] LABS: #Basophils 0.2 thou/uL (0.0-0.2); #Eosinphils 0.1 thou/uL (0.0-0.7); #Lymphocytes 0.8 thou/uL (1.20-3.40); #Monocytes 0.8 thou/uL (0.11-0.59); #Neutrophils 6.6 thou/uL (1.40-6.50); %Basophils 1.9 % (0.0-1.0); %Lymphocytes 9.5 % (21.0-51.0); %Monocytes 9.6 % (0.0-10.0); Hemoglobin 13.1 g/dL (14.0-18.0); Mean Corpuscular HGB CONC 29.6 g/dL (32.0-36.0); Mean Corpuscular Hemoglobin 23.6 pg (27.0-31.0); Mean Corpuscular Volume 79.7 fL (78.0-98.0); Mean Platelet Volume 8.8 fL (7.4-10.4); Platelet Count 299 thou/uL (130-400); RBC Distribution Width 17.2 % (11.5-14.5); Red Blood Cell (RBC) Count 5.56 mill/uL (4.70-6.10); White Blood Cell (WBC) Count 8.5 thou/uL (4.8-10.8)
[2019-02-23 15:05] LABS: Bilirubin Negative (Negative); Blood, Urine Trace (Negative); Clarity Clear (Clear); Glucose, Urine (Dipstick) Negative (Negative); Leukocyte Negative (Negative); Nitrite Negative (Negative); Protein, Urine (Dipstick) > or equal to 300 mg/dL (Neg-Trace)
[2019-02-23 15:14] LABS: ALT (SGPT) 34 U/L (8-55); AST (SGOT) 39 U/L (5-34); Albumin 3.5 g/dL (3.4-4.8); Alkaline Phosphatase 121 U/L (40-150); Anion Gap 17 mmol/L (10-20); BUN (Urea Nitrogen) 37 mg/dL (8.4-25.7); Bilirubin, Total 1.9 mg/dL (0.2-1.2); Calc. Creatinine Clearance 0 mL/min (70-130); Calcium 8.9 mg/dL (7.8-10.44); Carbon Dioxide 24 mmol/L (23-31); Chloride 103 mmol/L (98-107); Estimated GFR-MDRD 29; Glucose 164 mg/dL (80-115); Protein, Total 6.5 g/dL (5.8-8.1); Sodium 140 mmol/L (136-145)
[2019-02-23] MEDS ORDERED: Furosemide 40 MG/4 ML VIAL ONE (15:22)
[2019-02-23 15:26] LABS: Hypochromia SLIGHT = 6-15 cells (100X) (0-5/hpf); MDiff Complete? YES; Platelet Morphology Comment Appears Adequate; Poikilocytosis SLIGHT = 6-15 cells (100X) (0-5/hpf)
[2019-02-23 15:38] LABS: CKMB 9.4 ng/mL (0-6.6)
--- NOTE | 2019-02-23 15:58 | RAD ---
PA AND LATERAL CHEST: HISTORY: Ankle swelling. FINDINGS: Heart size is enlarged. There is mild vascular engorgement. Postop sternotomy change and a pacemake r are present. IMPRESSION: Cardiomegaly with mild vascular engorgement. POS: [facility]
[2019-02-23 16:02] LABS: Squamous Epithelial 0-3 HPF (0-3); WBC/HPF 0-3 HPF (0-3)
[2019-02-23 16:03] LABS: Bacteria/HPF Rare-Few HPF (None Seen)
[2019-02-23] MEDS ORDERED: Furosemide 40 MG/4 ML VIAL SLOW IVP SCH (17:45)
[2019-02-23] MEDS ORDERED: Acetaminophen 325 MG TAB PO PRN (18:29)
[2019-02-23] MEDS ORDERED: Ondansetron PF 4 MG/2 ML Vial IVP PRN (18:29)
[2019-02-23] MEDS ORDERED: Ondansetron ODT 4 MG TAB SL PRN (18:29)
[2019-02-23] MEDS: hydrALAZINE 25 MG TAB PO SCH (19:31)
[2019-02-23] MEDS: HumuLIN 70/30 (300 UNITS/3 ML VIAL) SC SCH (21:07)
[2019-02-23] MEDS: Isosorbide Dinitrate 20 MG TAB PO SCH (21:07)
[2019-02-23 21:53] LABS: Troponin I 0.155 ng/mL (< 0.028)
[2019-02-24] MEDS: Furosemide 40 MG/4 ML VIAL SLOW IVP SCH ×2 (05:38→14:39)
[2019-02-24 05:51] LABS: Anisocytosis MODERATE=16-30 cells (100X) (0-5/hpf); Hemoglobin 13.6 g/dL (14.0-18.0); Hypochromia SLIGHT = 6-15 cells (100X) (0-5/hpf); MDiff Complete? YES; Mean Corpuscular HGB CONC 28.9 g/dL (32.0-36.0); Mean Corpuscular Hemoglobin 23.3 pg (27.0-31.0); Mean Corpuscular Volume 80.7 fL (78.0-98.0); Mean Platelet Volume 8.6 fL (7.4-10.4); Microcytosis SLIGHT = 6-15 cells (100X) (0-5/hpf); Ovalocytes SLIGHT = 2-5 cells (100X) (0-1/hpf); Platelet Count 282 thou/uL (130-400); Platelet Morphology Comment Appears Adequate; Polychromasia SLIGHT = 2-3 cells (100X) (0-2/hpf); RBC Distribution Width 16.9 % (11.5-14.5); Red Blood Cell (RBC) Count 5.82 mill/uL (4.70-6.10); White Blood Cell (WBC) Count 7.7 thou/uL (4.8-10.8)
[2019-02-24 05:55] LABS: ALT (SGPT) 36 U/L (8-55); AST (SGOT) 40 U/L (5-34); Albumin 3.6 g/dL (3.4-4.8); Alkaline Phosphatase 119 U/L (40-150); Anion Gap 15 mmol/L (10-20); BUN (Urea Nitrogen) 37 mg/dL (8.4-25.7); Bilirubin, Total 1.7 mg/dL (0.2-1.2); Calc. Creatinine Clearance 39 mL/min (70-130); Calcium 9.2 mg/dL (7.8-10.44); Carbon Dioxide 24 mmol/L (23-31); Chloride 104 mmol/L (98-107); Estimated GFR-MDRD 32; Potassium 3.6 mmol/L (3.5-5.1); Protein, Total 6.6 g/dL (5.8-8.1); Sodium 139 mmol/L (136-145)
[2019-02-24] MEDS: hydrALAZINE 25 MG TAB PO SCH ×3 (06:13→21:31)
[2019-02-24] MEDS: Spironolactone 25 MG TAB PO SCH (06:13)
[2019-02-24] MEDS: Isosorbide Dinitrate 20 MG TAB PO SCH ×3 (06:13→21:26)
[2019-02-24 06:15] LABS: Glucose 51 mg/dL (80-115)
[2019-02-24 06:56] LABS: Bilirubin Negative (Negative); Blood, Urine Small (Negative); Clarity Clear (Clear); Glucose, Urine (Dipstick) Negative (Negative); Leukocyte Negative (Negative); Nitrite Negative (Negative); Protein, Urine (Dipstick) > or equal to 300 mg/dL (Neg-Trace)
[2019-02-24 07:01] LABS: RBC/HPF 0-3 HPF (0-3); Squamous Epithelial 0-3 HPF (0-3); WBC/HPF 0-3 HPF (0-3)
[2019-02-24 07:02] LABS: Bacteria/HPF None Seen HPF (None Seen)
--- NOTE | 2019-02-24 07:53 | RAD ---
EXAM: Chest Two Views 02/24/2019 7:49 AM HISTORY: Follow-up CHF COMPARISON: February 23, 2019 FINDINGS: Heart: Stable mild cardiomegaly Pulmonary vessels: Mild pulmonary vascular congestion is stable Costophrenic angles: Tiny bilateral pleural effusions Lungs: No confluent pneumonia, overt edema, pleural effusion, or other acute process. Pneumothorax: None. Osseous structures:Intact. Additional findings: None. IMPRESSION: Stable mild CHF
[2019-02-24] MEDS: Aspirin 81 mg Enteric Coated Tablet PO SCH (09:28)
[2019-02-24] MEDS: HumuLIN 70/30 (300 UNITS/3 ML VIAL) SC SCH ×2 (09:28→21:25)
[2019-02-24] MEDS: Docusate Calcium (SURFAK) 240 MG CAP PO SCH ×2 (09:28→21:23)
--- NOTE | 2019-02-24 11:22 | HP ---
Patient of Dr. Tomasa Conklin. HISTORY OF PRESENT ILLNESS: The patient is a pleasant 63-year-old white male with a history of poorly-controlled diabetes and hypertension for years as well as nicotine abuse with subsequent complications of significant coronary artery disease, status post myocardial infarction in 2009 with subsequent coronary artery bypass graft, but with persistent ischemic cardiomyopathy with 10% to 15% ejection fraction. He has had a defibrillator placed and has been doing fairly well and followed by Dr. Conklin with improved control of his diabetes to goal. No further smoking, but with persistent inadequate control of his cholesterol. He states that his blood pressure has been well controlled also; however, he has had progressive peripheral vascular disease and required recent admission to [facility] for bilateral femoral-popliteal stents for severe claudication, which is still present. He is only taking aspirin as he has been unable to afford Brilinta and apparently failed on Plavix. He states at this time that he normally can walk 50 feet without stopping because of pain in his legs and has no dyspnea at this distance. However, he has noticed increasing edema over the last several weeks and mild increase in shortness of breath. He states that he has required admission when this has occurred in the past. He also has complications from his diabetes or chronic kidney disease, stage 3 to 4, which has been fairly stable over the last 2 years, but has shown some mild deterioration on this admission with creatinine up to 2.42, where normally it was less than 2, with last documentation in November of this year of [address] Conklin's office. He is denying any chest pain, palpitations, dizziness, or syncope. He is denying noncompliance to his diet or medications. PAST MEDICAL HISTORY: Remarkable only for the above-mentioned problem. PAST SURGICAL HISTORY: Remarkable for the coronary artery bypass graft, multiple stents, and a history of a right knee surgery years ago. FAMILY MEDICAL HISTORY: Positive for heart disease and diabetes. SOCIAL HISTORY: He has the above-mentioned distant smoking history, but has not smoked since 2009. He does not use alcohol or drugs. ALLERGIES: HE IS ALLERGIC TO MORPHINE AND PENICILLIN. MEDICATIONS: His home medications included: 1. Isosorbide dinitrate 20 mg three times a day. 2. Hydralazine 25 mg three times a day. 3. Spironolactone 50 mg daily. 4. Furosemide 40 mg p.o. b.i.d. 5. Aspirin 81 mg daily. 6. He is not on a statin. REVIEW OF SYSTEMS: HEENT: Denies any headaches, dizziness, change in vision or hearing, hoarseness, or dysphagia. PULMONARY: He does have a mild dry cough. Denies sputum production, pneumonia, asthma, or tuberculosis. CARDIOVASCULAR: He has no orthopnea, paroxysmal nocturnal dyspnea, but does have some dyspnea on mild exertion today. He denies any chest pain or palpitations. GASTROINTESTINAL: He denies nausea, vomiting, diarrhea, constipation, or abdominal pain. GENITOURINARY: Denies dysuria, hematuria, or nocturia. MUSCULOSKELETAL: He has pain in his legs on walking of more muscles than the joints. NEUROLOGIC: He does have numbness and tingling in his feet, worsened by walking, but no pain at rest, only on walking. He denies localized weakness in his arms or extremities. PHYSICAL EXAMINATION: GENERAL: The patient is a middle-aged white male, appears in no acute distress, lying in the bed, oriented x3 and cooperative. VITAL SIGNS: Show him to have a temperature of 96.5, pulse 106, respirations 18, O2 sat is 97% on room air, and blood pressure 183/114. HEENT: Pupils are equal, round, and reactive to light and accommodation. Sclerae anicteric. Conjunctivae pale. Fundi do show some dural narrowing with no hemorrhages. Teeth show some few removed teeth, some dental caries. NECK: Supple. There are no nodes or masses. JVP is not elevated. Carotids 2+ and equal without bruits. LUNGS: Clear. CARDIAC: Showed regular rhythm. No gallops other than an S4. There is no murmur. ABDOMEN: Soft and nontender. No masses or organomegaly. SKIN AND EXTREMITIES: Show absent pedal pulses with trace edema. No clubbing or cyanosis. NEUROLOGIC: Cranial nerves intact. Deep tendon reflex 2+ and equal. Absent Babinski. LABORATORY DATA: Laboratories show white count 8500, hematocrit 44, and hemoglobin 13. Sodium 140, potassium 4.0, chloride 103, bicarb 24, BUN 37, creatinine 2.27, GFR 29, total bilirubin 1.9, and AST 34. BNP is 1220. Troponins 0.126, trended up to 0.155. IMAGING STUDIES: Chest x-ray reveals cardiomegaly with mild vascular . EKG showed no acute changes. ASSESSMENT: The patient is a 63-year-old white male with history of poorly-controlled diabetes and hypertension with subsequent complications of ischemic cardiomyopathy, status post coronary artery bypass graft and acute myocardial infarction in 2009. He presents with gradually increasing shortness of breath and edema. He has also been found to have worsening of his chronic kidney disease stage 3 to now stage 4 with creatinine increasing from 1.5 to 2.2 and GFR decreasing from 56 to 29. BNP is also significantly elevated to 1796. Does not appear to be in acute ischemic event. His troponins are borderline and are consistent with demand ischemia and chronic renal failure. Blood pressure is uncontrolled at this time, and we will restart home medications and may need to titrate up to 50 mg of hydralazine every 8. Diabetes appears to be well controlled with recent normal hemoglobin A1c and in fact hypoglycemia this morning and we will monitor on home medications and may need to decrease his Humulin 70/30. Renal failure is worsened and will need to be monitored closely with daily labs as he is diuresed. Hopefully, it will improve as well as BNP. PLAN: 1. Continue Lasix 40 mg IV b.i.d. instead of oral. 2. Continue spironolactone. 3. Continue Humulin 70/30 twice daily and monitor Accu-Cheks. 4. Continue hydralazine, isosorbide, and spironolactone, but if blood pressure remains elevated, we will increase hydralazine to 50 q.8. 5. Daily basic metabolic profile and BNP. Monitor renal function closely with diuresis. Hopefully, he will improve with increased cardiac output. Job ID: [id number]
[2019-02-24] MEDS: Acetaminophen 500 MG TAB PO PRN (21:31)
[2019-02-25] MEDS: HumuLIN 70/30 (300 UNITS/3 ML VIAL) SC SCH ×3 (02:02→20:07)
[2019-02-25] MEDS: hydrALAZINE 25 MG TAB PO SCH ×3 (05:31→20:28)
[2019-02-25] MEDS: Furosemide 40 MG/4 ML VIAL SLOW IVP SCH ×2 (05:32→14:56)
[2019-02-25] MEDS: Aspirin 81 mg Enteric Coated Tablet PO SCH (08:11)
[2019-02-25] MEDS: Docusate Calcium (SURFAK) 240 MG CAP PO SCH ×2 (08:11→20:09)
[2019-02-25] MEDS: Isosorbide Dinitrate 20 MG TAB PO SCH ×3 (08:11→20:12)
[2019-02-25] MEDS: Spironolactone 25 MG TAB PO SCH (08:11)
[2019-02-25 08:35] LABS: Anion Gap 19 mmol/L (10-20); BUN (Urea Nitrogen) 35 mg/dL (8.4-25.7); Calc. Creatinine Clearance 43 mL/min (70-130); Calcium 9.4 mg/dL (7.8-10.44); Carbon Dioxide 26 mmol/L (23-31); Chloride 101 mmol/L (98-107); Estimated GFR-MDRD 33; Glucose 73 mg/dL (80-115); Potassium 3.9 mmol/L (3.5-5.1); Sodium 142 mmol/L (136-145)
[2019-02-25] MEDS ORDERED: Bisacodyl 10 MG SUPP PR SCH (18:30)
[2019-02-25] MEDS ORDERED: Bisacodyl 5 MG TAB PO SCH (18:30)
[2019-02-25] MEDS ORDERED: Furosemide 40 MG TAB PO PRN (19:45)
[2019-02-25] MEDS: Acetaminophen 500 MG TAB PO PRN (20:12)
--- NOTE | 2019-02-25 20:29 | PRG ---
DATE OF SERVICE: 02/25/[address] Tomasa Conklin. SUBJECTIVE: The patient feels much better today with no dyspnea or edema or shortness of breath. He has been walking in the [place]. He has been diuresing well with IV Lasix, but has become constipated. He has had no chest pain, dizziness, or lightheadedness. OBJECTIVE: VITAL SIGNS: Shows pulse is 90, respirations 16, O2 sats 97% on room air, and blood pressure 126/79. LUNGS: Clear. CARDIAC: Showed regular rhythm. ABDOMEN: Soft and nontender. SKIN AND EXTREMITIES: Show no edema. LABORATORY DATA: Accu-Cheks ranged from 73 to 125. BNP is 1433. Sodium is 142, potassium 3.9, chloride 101, bicarb 26, BUN 35, and creatinine 2.04. ASSESSMENT: 1. Resolving exacerbation of congestive heart failure. 2. Type 2 diabetes, controlled to goal. 3. Hypertension, controlled to goal. 4. Coronary artery disease, asymptomatic. 5. New onset of constipation. 6. Chronic kidney disease stage 3, which is stabilized in fact, improved with diuresis. PLAN: Change IV Lasix to oral Lasix 40 twice daily. Give Dulcolax suppository and oral Dulcolax now. Dr. Conklin to be back tomorrow. Repeat basic metabolic profile and BNP in the a.m. Ambulate tomorrow. Continue Accu-Cheks to monitor and titrate and control diabetes. Job ID: [id number]
[2019-02-26 05:02] VITALS: BMI 28.8
[2019-02-26] MEDS: hydrALAZINE 25 MG TAB PO SCH ×2 (05:19→13:47)
[2019-02-26 05:53] LABS: Anion Gap 17 mmol/L (10-20); BUN (Urea Nitrogen) 36 mg/dL (8.4-25.7); Calc. Creatinine Clearance 43 mL/min (70-130); Calcium 9.5 mg/dL (7.8-10.44); Carbon Dioxide 26 mmol/L (23-31); Chloride 103 mmol/L (98-107); Estimated GFR-MDRD 33; Glucose 61 mg/dL (80-115); Potassium 3.7 mmol/L (3.5-5.1); Sodium 142 mmol/L (136-145)
[2019-02-26] MEDS ORDERED: Magnesium Citrate 300 ML BOT PO SCH (09:15)
[2019-02-26] MEDS: HumuLIN 70/30 (300 UNITS/3 ML VIAL) SC SCH (09:55)
[2019-02-26] MEDS: Spironolactone 25 MG TAB PO SCH (09:59)
[2019-02-26] MEDS: Isosorbide Dinitrate 20 MG TAB PO SCH (09:59)
[2019-02-26] MEDS: Aspirin 81 mg Enteric Coated Tablet PO SCH (10:00)
[2019-02-26] MEDS: Furosemide 40 MG TAB PO SCH ×2 (10:00→13:47)
[2019-02-26] MEDS: Docusate Calcium (SURFAK) 240 MG CAP PO SCH (10:00)
--- NOTE | 2019-02-26 10:15 | DIS ---
DATE OF ADMISSION: 02/23/2019 DATE OF DISCHARGE: 02/26/2019 PRINCIPAL DIAGNOSIS: Acute on chronic systolic congestive heart failure. SECONDARY DIAGNOSES: 1. Coronary artery disease, status post coronary artery bypass grafting. 2. Ischemic cardiomyopathy, requiring AICD placement. 3. Peripheral vascular disease. 4. Diabetes mellitus, type 2. 5. Hypertension. 6. Dyslipidemia. 7. Chronic kidney disease stage 3 to 4. COMPLICATIONS: None. ADVERSE REACTIONS: None. PROCEDURES: None. CONSULTATIONS: None. HOSPITAL COURSE: The patient was admitted by my partner, Dr. Umaña due to worsening shortness of breath and pedal edema as well as dyspnea on exertion. His creatinine had gone up to 2.42. His baseline was 1.5 from last year. He was treated with IV Lasix and then has been switched back to p.o. Lasix. He is feeling much better and is back to his baseline. His creatinine is down to 2.02. He is off oxygen. He is ambulating without difficulty back to his baseline levels. He still cannot ambulate long distances due to peripheral vascular disease. He wants to go home and he is medically stable to go home. Discharge medications will be same as admission. He was advised to keep his appointment with me. He was advised to call us with any questions or concerns and to return to ER if his symptoms recur. PHYSICAL EXAMINATION: VITAL SIGNS: On the day of discharge, he is afebrile, heart rate 91, respirations 20, oxygen saturation 97% on room air, and blood pressure 146/88. CARDIOVASCULAR: S1 and S2 plus. RESPIRATORY: Normal vesicular breath sounds with occasional crackles in the base. ABDOMEN: Soft and nontender. Bowel sounds heard in all quadrants. EXTREMITIES: Without cyanosis or clubbing. Trace pedal edema. Peripheral pulses are decreased. CENTRAL NERVOUS SYSTEM: Awake and responsive. Cranial nerves 2 through 12 intact. Possible peripheral neuropathy. Improved deconditioning. LABORATORY VALUES: Sodium 142, potassium 3.7, BUN and creatinine is 36 and 2.04. Blood sugars are 73, 197, 60, 98. DISCHARGE MEDICATIONS: Will be same as admission, which is, 1. Ecotrin 81 mg daily. 2. Lasix 40 mg b.i.d. 3. Hydralazine 50 mg q.8 hours. 4. Isosorbide 20 mg t.i.d. 5. Aldactone 50 mg daily. 6. We will give him one dose of magnesium citrate for his constipation. He does not need any prescriptions. For full details, please see chart. Discussed with the patient and nursing. Job ID: [id number]
[2019-02-26 11:44] VITALS: BP 148/70
[2019-02-26 14:16] VITALS: TEMP 98.2
== END 2019-02-26 14:05 | disposition home or self-care (01) | DRG 291 ==
LOC: NAV ERS 14:19 → NAV ACUTE 16:07
PROVIDERS: ADMIT Internal Medicine; ATTEND Internal Medicine
DX: I13.0 Hypertensive heart and chronic kidney disease with heart failure and stage 1 through stage 4 chronic kidney disease, or unspecified chronic kidney disease (principal); I50.23 Acute on chronic systolic (congestive) heart failure; N18.4 Chronic kidney disease, stage 4 (severe); E11.649 Type 2 diabetes mellitus with hypoglycemia without coma; I12.9 Hypertensive chronic kidney disease with stage 1 through stage 4 chronic kidney disease, or unspecified chronic kidney disease; E11.22 Type 2 diabetes mellitus with diabetic chronic kidney disease; I25.5 Ischemic cardiomyopathy; I25.10 Atherosclerotic heart disease of native coronary artery without angina pectoris; E78.5 Hyperlipidemia, unspecified; E11.51 Type 2 diabetes mellitus with diabetic peripheral angiopathy without gangrene; K59.00 Constipation, unspecified; I25.2 Old myocardial infarction; Z95.1 Presence of aortocoronary bypass graft; Z87.891 Personal history of nicotine dependence; Z88.0 Allergy status to penicillin; Z88.5 Allergy status to narcotic agent
CPT/HCPCS: 36415; 36416; 71046; 80048; 80053; 81001; 81003; 81015; 82553; 83880; 84484; 85025; 93005; 93306; 96374; J1815; J1940

== ENCOUNTER 2019-03-05 13:32 | Emergency (ER) | payer MEDICARE ==
[2019-03-05] MEDS ORDERED: Aspirin Chewable 81 MG TAB ONE (14:16)
[2019-03-05 14:20] LABS: #Basophils 0.2 thou/uL (0.0-0.2); #Lymphocytes 0.9 thou/uL (1.20-3.40); #Neutrophils 6.6 thou/uL (1.40-6.50); %Basophils 2.6 % (0.0-1.0); %Eosinophils 0.5 % (0.0-10.0); %Lymphocytes 10.3 % (21.0-51.0); %Monocytes 11.4 % (0.0-10.0); %Neutrophils 75.3 % (42.0-75.0); Anisocytosis SLIGHT = 6-15 cells (100X) (0-5/hpf); Hemoglobin 13.8 g/dL (14.0-18.0); MDiff Complete? YES; Mean Corpuscular HGB CONC 29.7 g/dL (32.0-36.0); Mean Corpuscular Hemoglobin 23.1 pg (27.0-31.0); Mean Corpuscular Volume 77.7 fL (78.0-98.0); Mean Platelet Volume 8.7 fL (7.4-10.4); Microcytosis SLIGHT = 6-15 cells (100X) (0-5/hpf); Platelet Count 287 thou/uL (130-400); Platelet Morphology Comment Appears Adequate; RBC Distribution Width 17.4 % (11.5-14.5); Red Blood Cell (RBC) Count 5.97 mill/uL (4.70-6.10); White Blood Cell (WBC) Count 8.8 thou/uL (4.8-10.8)
[2019-03-05 14:21] LABS: Calc. Creatinine Clearance 0 mL/min (70-130); Calcium 9.1 mg/dL (7.8-10.44); Carbon Dioxide 18 mmol/L (23-31)
--- NOTE | 2019-03-05 14:21 | RAD ---
CHEST 1 VIEW: HISTORY: Dyspnea. COMPARISON: Radiograph 02/24/2019. FINDINGS: Heart size is mildly enlarged. Single-lead defibrillator is in place. Mild pulmonary venous congest ion. No pneumothorax or significant effusion. No acute osseous abnormality. IMPRESSION: Cardiomegaly and mild pulmonary venous congestion. POS: [facility]
[2019-03-05 14:53] LABS: Potassium 4.2 mmol/L (3.5-5.1); Sodium 136 mmol/L (136-145)
[2019-03-05 14:54] LABS: Anion Gap 19 mmol/L (10-20); BUN (Urea Nitrogen) 49 mg/dL (8.4-25.7); Chloride 103 mmol/L (98-107)
[2019-03-05 14:55] LABS: Estimated GFR-MDRD 31
[2019-03-05 14:56] LABS: Bilirubin, Total 2.5 mg/dL (0.2-1.2); Glucose 96 mg/dL (80-115); Protein, Total 6.4 g/dL (5.8-8.1)
[2019-03-05 14:57] LABS: Albumin 3.5 g/dL (3.4-4.8); Globulin 2.9 g/dL (2.4-3.5)
[2019-03-05 14:58] LABS: ALT (SGPT) 95 U/L (8-55); AST (SGOT) 107 U/L (5-34); Alkaline Phosphatase 110 U/L (40-150)
[2019-03-05 15:18] LABS: Magnesium 2.5 mg/dL (1.6-2.6)
[2019-03-05 15:47] LABS: CKMB 11.7 ng/mL (0-6.6)
--- NOTE | 2019-03-05 17:19 | ULT ---
BILATERAL LOWER EXTREMITY VENOUS DUPLEX ULTRASOUND INCLUDING COLOR AND SPECTRAL DOPPLER IMAGING: HISTORY: Bilateral lower extremity edema. Elevated D-dimer. Dyspnea. TECHNIQUE: Exam performed from groin to ankle, including the visualized greater saphenous, common femoral, super ficial femoral, profunda femoral, popliteal, trifurcation, and posterior tibial vein regions. FINDINGS: Phasic flow at all levels with normal compressibility and normal augmentation. No intraluminal throm bus. IMPRESSION: No evidence for deep venous thrombosis. POS: [facility]
== END 2019-03-05 16:40 | disposition short-term general hospital (02) ==
LOC: NAV ERS 13:32
DX: I16.0 Hypertensive urgency (principal); I13.0 Hypertensive heart and chronic kidney disease with heart failure and stage 1 through stage 4 chronic kidney disease, or unspecified chronic kidney disease; I50.9 Heart failure, unspecified; N18.9 Chronic kidney disease, unspecified; R79.89 Other specified abnormal findings of blood chemistry; R79.1 Abnormal coagulation profile; I25.2 Old myocardial infarction; E11.9 Type 2 diabetes mellitus without complications; Z79.4 Long term (current) use of insulin; Z79.82 Long term (current) use of aspirin; Z79.899 Other long term (current) drug therapy
CPT/HCPCS: 71045; 80053; 82553; 83605; 83735; 83880; 84484; 85025; 85379; 93005; 93970; 94760

== ENCOUNTER 2019-03-12 20:28 | Emergency (ER) | payer MEDICARE ==
[2019-03-12 21:00] LABS: #Basophils 0.2 thou/uL (0.0-0.2); #Eosinphils 0.1 thou/uL (0.0-0.7); #Lymphocytes 0.8 thou/uL (1.20-3.40); #Monocytes 0.9 thou/uL (0.11-0.59); #Neutrophils 6.5 thou/uL (1.40-6.50); %Basophils 2.3 % (0.0-1.0); %Eosinophils 0.9 % (0.0-10.0); %Lymphocytes 9.7 % (21.0-51.0); %Monocytes 10.7 % (0.0-10.0); %Neutrophils 76.5 % (42.0-75.0); Hemoglobin 13.9 g/dL (14.0-18.0); Mean Corpuscular HGB CONC 29.2 g/dL (32.0-36.0); Mean Corpuscular Hemoglobin 22.3 pg (27.0-31.0); Mean Corpuscular Volume 76.5 fL (78.0-98.0); Mean Platelet Volume 10.4 fL (7.4-10.4); Platelet Count 280 thou/uL (130-400); RBC Distribution Width 17.7 % (11.5-14.5); Red Blood Cell (RBC) Count 6.23 mill/uL (4.70-6.10); White Blood Cell (WBC) Count 8.6 thou/uL (4.8-10.8)
--- NOTE | 2019-03-12 21:09 | RAD ---
Portable frontal chest radiograph: 03/12/2019 COMPARISON: 03/05/2019 HISTORY: Chest pain with shortness of breath FINDINGS: Stable midline sternotomy wires and transvenous pacing device. Heart and mediastinal contou rs are stable. No pneumothorax or pleural fluid. No focal consolidation or alveolar edema. IMPRESSION: Stable appearance of the chest.
[2019-03-12 21:12] LABS: ALT (SGPT) 52 U/L (8-55); AST (SGOT) 38 U/L (5-34); Albumin 3.9 g/dL (3.4-4.8); Alkaline Phosphatase 127 U/L (40-150); Anion Gap 18 mmol/L (10-20); BUN (Urea Nitrogen) 46 mg/dL (8.4-25.7); Bilirubin, Total 1.8 mg/dL (0.2-1.2); CK (CPK) 261 U/L (30-200); Calc. Creatinine Clearance 0 mL/min (70-130); Calcium 9.7 mg/dL (7.8-10.44); Carbon Dioxide 24 mmol/L (23-31); Chloride 101 mmol/L (98-107); Estimated GFR-MDRD 28; Globulin 3.3 g/dL (2.4-3.5); Glucose 205 mg/dL (80-115); Lipase 16 U/L (8-78); Potassium 4.4 mmol/L (3.5-5.1); Protein, Total 7.2 g/dL (5.8-8.1); Sodium 139 mmol/L (136-145)
[2019-03-12 21:15] LABS: Band 2 % (5-11); Hypochromia SLIGHT = 6-15 cells (100X) (0-5/hpf); Lymphocytes 17 % (21-51); MDiff Complete? YES; Monocytes 2 % (0-10); Neutrophil 79 % (42-75); Ovalocytes SLIGHT = 2-5 cells (100X) (0-1/hpf); Platelet Morphology Comment Appears Adequate; Poikilocytosis SLIGHT = 6-15 cells (100X) (0-5/hpf)
[2019-03-12 21:38] LABS: CKMB 7.4 ng/mL (0-6.6)
== END 2019-03-12 21:57 | disposition short-term general hospital (02) ==
LOC: NAV ERS 20:28
DX: I13.0 Hypertensive heart and chronic kidney disease with heart failure and stage 1 through stage 4 chronic kidney disease, or unspecified chronic kidney disease (principal); N18.4 Chronic kidney disease, stage 4 (severe); I50.9 Heart failure, unspecified; I25.2 Old myocardial infarction; Z79.4 Long term (current) use of insulin; Z79.82 Long term (current) use of aspirin; Z79.899 Other long term (current) drug therapy
CPT/HCPCS: 36415; 71045; 80053; 82550; 82553; 83690; 83880; 84484; 85025; 93005; 94760

== ENCOUNTER 2020-10-30 14:48 | Inpatient (IN) | payer MEDICARE ==
[2020-10-30] MEDS ORDERED: Cefepime 2 GM VIAL ONE (15:54)
[2020-10-30] MEDS ORDERED: Sodium Chloride 0.9% 100 ML ONE (15:54)
[2020-10-30 16:06] LABS: Hemoglobin 15.6 g/dL (14.0-18.0); Mean Corpuscular HGB CONC 32.9 g/dL (32.0-36.0); Mean Corpuscular Hemoglobin 28.4 pg (27.0-31.0); Mean Corpuscular Volume 86.4 fL (78.0-98.0); Mean Platelet Volume 9.2 fL (7.4-10.4); Platelet Count 317 thou/uL (130-400); RBC Distribution Width 12.5 % (11.5-14.5); White Blood Cell (WBC) Count 25.4 thou/uL (4.8-10.8)
[2020-10-30 16:07] LABS: ALT (SGPT) 16 U/L (8-55); AST (SGOT) 16 U/L (5-34); Alkaline Phosphatase 85 U/L (40-110); Anion Gap 19 mmol/L (10-20); BUN (Urea Nitrogen) 69 mg/dL (8.4-25.7); Bilirubin, Total 1.4 mg/dL (0.2-1.2); Calc. Creatinine Clearance 0 mL/min (70-130); Calcium 9.5 mg/dL (7.8-10.44); Carbon Dioxide 18 mmol/L (23-31); Chloride 101 mmol/L (98-107); Globulin 4.5 g/dL (2.4-3.5); Glucose 138 mg/dL (80-115); Protein, Total 8.5 g/dL (5.8-8.1); Sodium 134 mmol/L (136-145)
[2020-10-30 16:25] LABS: Band 1 % (5-11); Lymphocytes 3 % (21-51); MDiff Complete? YES; Monocytes 3 % (0-10); Neutrophil 93 % (42-75); Platelet Morphology Comment Appears Adequate; RBC Morphology Normal
[2020-10-30] MEDS ORDERED: Sodium Chloride 0.9% 1,000 ML ONE ×2 (16:29→16:55)
[2020-10-30] MEDS ORDERED: Sodium Chloride 0.9% 0 ML ONE (16:53)
[2020-10-30] MEDS ORDERED: Sodium Chloride 0.9% 500 ML ONE (17:04)
[2020-10-30] MEDS ORDERED: Ketorolac Tromethamine 30 MG/ML VIAL ONE (17:30)
[2020-10-30 17:55] LABS: SARS-CoV-2 NAA Rapid Test Not Detected (NotDetected)
[2020-10-30] MEDS ORDERED: Sodium Chloride 0.9% 10 ML ONE (19:33)
[2020-10-30] MEDS ORDERED: Acetaminophen 500 MG TAB PO PRN (20:38)
[2020-10-30] MEDS ORDERED: HumaLOG 300 UNITS/3 ML VIAL SC PRN (20:45)
[2020-10-30] MEDS ORDERED: Sodium Chloride 0.9% 1,000 ML IV SCH (20:45)
[2020-10-30] MEDS ORDERED: Dextrose 5% in Water 1,000 ML IV PRN (20:45)
[2020-10-30] MEDS ORDERED: Dextrose 50% Abboject 50 ML SYRINGE IVP PRN (20:45)
[2020-10-30] MEDS ORDERED: HumuLIN 70/30 (300 UNITS/3 ML VIAL) SC SCH (21:00)
[2020-10-30] MEDS: Atorvastatin Calcium 40 MG TAB PO SCH (21:06)
[2020-10-30] MEDS: Tamsulosin HCl 0.4 MG CAP PO SCH (21:06)
[2020-10-30] MEDS: Docusate 100 MG CAP PO SCH (21:06)
[2020-10-30] MEDS: Lisinopril 10 MG TAB PO SCH (21:06)
[2020-10-30] MEDS: Isosorbide Dinitrate 20 MG TAB PO SCH (21:07)
[2020-10-30] MEDS: traMADol HCl 50 MG TAB PO PRN (21:08)
[2020-10-31 05:45] LABS: #Basophils 0.1 thou/uL (0.0-0.2); #Eosinphils 0.2 thou/uL (0.0-0.7); #Monocytes 1.4 thou/uL (0.11-0.59); #Neutrophils 13.8 thou/uL (1.40-6.50); %Basophils 0.7 % (0.0-1.0); %Eosinophils 1.2 % (0.0-10.0); %Lymphocytes 6.1 % (21.0-51.0); %Monocytes 8.4 % (0.0-10.0); %Neutrophils 83.6 % (42.0-75.0); Hemoglobin 13.1 g/dL (14.0-18.0); Mean Corpuscular HGB CONC 33.1 g/dL (32.0-36.0); Mean Corpuscular Hemoglobin 28.9 pg (27.0-31.0); Mean Corpuscular Volume 87.3 fL (78.0-98.0); Mean Platelet Volume 9.1 fL (7.4-10.4); Platelet Count 250 thou/uL (130-400); RBC Distribution Width 12.4 % (11.5-14.5); Red Blood Cell (RBC) Count 4.55 mill/uL (4.70-6.10); White Blood Cell (WBC) Count 16.6 thou/uL (4.8-10.8)
[2020-10-31 05:56] LABS: Anion Gap 14 mmol/L (10-20); BUN (Urea Nitrogen) 43 mg/dL (8.4-25.7); Calc. Creatinine Clearance 56 mL/min (70-130); Calcium 8.3 mg/dL (7.8-10.44); Carbon Dioxide 17 mmol/L (23-31); Chloride 109 mmol/L (98-107); Glucose 167 mg/dL (80-115); Potassium 3.6 mmol/L (3.5-5.1); Sodium 136 mmol/L (136-145)
[2020-10-31] MEDS: HumuLIN 70/30 (300 UNITS/3 ML VIAL) SC SCH ×2 (08:15→17:00)
[2020-10-31] MEDS: Isosorbide Dinitrate 20 MG TAB PO SCH ×3 (08:16→20:54)
[2020-10-31] MEDS: Furosemide 80 MG TAB PO SCH ×2 (08:17→14:25)
[2020-10-31] MEDS: Docusate 100 MG CAP PO SCH ×2 (08:17→20:54)
[2020-10-31] MEDS: Carvedilol 6.25 MG TAB PO SCH ×2 (08:18→17:43)
[2020-10-31] MEDS: Spironolactone 25 MG TAB PO SCH (08:20)
[2020-10-31] MEDS: Aspirin 81 mg Enteric Coated Tablet PO SCH (08:20)
[2020-10-31] MEDS: traMADol HCl 50 MG TAB PO PRN ×3 (08:22→20:54)
[2020-10-31] MEDS: Cefepime 1 GM in Sodium Chloride 0.9% 100 ML IVPB SCH ×2 (09:19→21:04)
[2020-10-31] MEDS ORDERED: Sodium Chloride 0.9% 10 ML ONE (11:10)
[2020-10-31] MEDS: HumaLOG 300 UNITS/3 ML VIAL SC PRN (12:27)
[2020-10-31] MEDS: Vancomycin HCl 750 MG in Sodium Chloride 0.9% 250 ML 250 ML IVPB SCH (16:56)
[2020-10-31] MEDS ORDERED: Vancomycin HCl 500 MG in Sodium Chloride 0.9% 100 ML IVPB SCH (18:00)
[2020-10-31] MEDS: Enoxaparin Sodium 30 MG/0.3 ML SYRINGE SC SCH (20:53)
[2020-10-31] MEDS: Tamsulosin HCl 0.4 MG CAP PO SCH (20:54)
[2020-10-31] MEDS: Atorvastatin Calcium 40 MG TAB PO SCH (20:54)
[2020-10-31] MEDS: Lisinopril 10 MG TAB PO SCH (20:54)
[2020-11-01 05:58] LABS: Anion Gap 14 mmol/L (10-20); BUN (Urea Nitrogen) 36 mg/dL (8.4-25.7); Calc. Creatinine Clearance 48 mL/min (70-130); Calcium 8.4 mg/dL (7.8-10.44); Carbon Dioxide 24 mmol/L (23-31); Chloride 104 mmol/L (98-107); Glucose 219 mg/dL (80-115); Potassium 3.6 mmol/L (3.5-5.1); Sodium 138 mmol/L (136-145)
[2020-11-01 06:04] LABS: Hemoglobin 12.6 g/dL (14.0-18.0); Mean Corpuscular Hemoglobin 28.6 pg (27.0-31.0); Mean Corpuscular Volume 86.7 fL (78.0-98.0); Platelet Count 285 thou/uL (130-400); RBC Distribution Width 12.4 % (11.5-14.5); White Blood Cell (WBC) Count 23.3 thou/uL (4.8-10.8)
[2020-11-01 06:08] LABS: Band 7 % (5-11); Eosinophils 2 % (0-10); Lymphocytes 3 % (21-51); MDiff Complete? YES; Monocytes 6 % (0-10); Neutrophil 82 % (42-75); Platelet Morphology Comment Appears Adequate
[2020-11-01 06:09] LABS: RBC Morphology Normal
[2020-11-01] MEDS: Isosorbide Dinitrate 20 MG TAB PO SCH ×3 (08:15→21:07)
[2020-11-01] MEDS: Docusate 100 MG CAP PO SCH ×2 (08:16→21:07)
[2020-11-01] MEDS: Aspirin 81 mg Enteric Coated Tablet PO SCH (08:16)
[2020-11-01] MEDS: Furosemide 80 MG TAB PO SCH ×2 (08:17→14:52)
[2020-11-01] MEDS: Spironolactone 25 MG TAB PO SCH (08:17)
[2020-11-01] MEDS: Carvedilol 6.25 MG TAB PO SCH ×2 (08:17→17:51)
[2020-11-01] MEDS: HumuLIN 70/30 (300 UNITS/3 ML VIAL) SC SCH ×2 (08:18→17:48)
[2020-11-01] MEDS: Cefepime 1 GM in Sodium Chloride 0.9% 100 ML IVPB SCH ×2 (08:22→21:02)
[2020-11-01] MEDS: traMADol HCl 50 MG TAB PO PRN ×2 (08:46→22:51)
[2020-11-01] MEDS: HumaLOG 300 UNITS/3 ML VIAL SC PRN (12:41)
[2020-11-01 16:40] LABS: Vancomycin, Trough 11.2 ug/mL
[2020-11-01] MEDS ORDERED: HumuLIN 70/30 (300 UNITS/3 ML VIAL) SC SCH (17:30)
[2020-11-01] MEDS: Vancomycin HCl 750 MG in Sodium Chloride 0.9% 250 ML 250 ML IVPB SCH ×2 (17:46→18:44)
[2020-11-01] MEDS ORDERED: Vancomycin HCl 750 MG in Sodium Chloride 0.9% 100 ML IVPB SCH (18:00)
[2020-11-01] MEDS: Atorvastatin Calcium 40 MG TAB PO SCH (21:07)
[2020-11-01] MEDS: Enoxaparin Sodium 30 MG/0.3 ML SYRINGE SC SCH (21:07)
[2020-11-01] MEDS: Tamsulosin HCl 0.4 MG CAP PO SCH (21:08)
[2020-11-01] MEDS: Lisinopril 10 MG TAB PO SCH (21:08)
[2020-11-02 05:20] LABS: #Basophils 0.1 thou/uL (0.0-0.2); #Eosinphils 0.4 thou/uL (0.0-0.7); #Lymphocytes 1.4 thou/uL (1.20-3.40); #Monocytes 1.5 thou/uL (0.11-0.59); #Neutrophils 16.2 thou/uL (1.40-6.50); %Basophils 0.7 % (0.0-1.0); %Lymphocytes 6.9 % (21.0-51.0); %Monocytes 7.7 % (0.0-10.0); %Neutrophils 82.7 % (42.0-75.0); Hemoglobin 12.1 g/dL (14.0-18.0); Mean Corpuscular HGB CONC 32.5 g/dL (32.0-36.0); Mean Corpuscular Hemoglobin 28.1 pg (27.0-31.0); Mean Corpuscular Volume 86.4 fL (78.0-98.0); Mean Platelet Volume 9.1 fL (7.4-10.4); Platelet Count 279 thou/uL (130-400); RBC Distribution Width 12.4 % (11.5-14.5); Red Blood Cell (RBC) Count 4.31 mill/uL (4.70-6.10); White Blood Cell (WBC) Count 19.6 thou/uL (4.8-10.8)
[2020-11-02 05:35] LABS: Anion Gap 14 mmol/L (10-20); BUN (Urea Nitrogen) 29 mg/dL (8.4-25.7); Calc. Creatinine Clearance 59 mL/min (70-130); Calcium 8.5 mg/dL (7.8-10.44); Carbon Dioxide 24 mmol/L (23-31); Chloride 106 mmol/L (98-107); Glucose 133 mg/dL (80-115); Potassium 3.4 mmol/L (3.5-5.1); Sodium 141 mmol/L (136-145)
[2020-11-02] MEDS: HumuLIN 70/30 (300 UNITS/3 ML VIAL) SC SCH ×2 (07:38→16:51)
[2020-11-02] MEDS: Aspirin 81 mg Enteric Coated Tablet PO SCH (09:07)
[2020-11-02] MEDS: Furosemide 80 MG TAB PO SCH ×2 (09:07→15:20)
[2020-11-02] MEDS: traMADol HCl 50 MG TAB PO PRN ×2 (09:07→21:13)
[2020-11-02] MEDS: Isosorbide Dinitrate 20 MG TAB PO SCH ×3 (09:09→21:16)
[2020-11-02] MEDS: Carvedilol 6.25 MG TAB PO SCH ×2 (09:09→16:50)
[2020-11-02] MEDS: Spironolactone 25 MG TAB PO SCH (09:10)
[2020-11-02] MEDS: Docusate 100 MG CAP PO SCH ×2 (09:10→21:17)
[2020-11-02] MEDS: Cefepime 1 GM in Sodium Chloride 0.9% 100 ML IVPB SCH ×2 (09:10→21:10)
[2020-11-02] MEDS: HumaLOG 300 UNITS/3 ML VIAL SC PRN ×2 (11:46→16:52)
[2020-11-02 12:40] VITALS: BMI 27.4
[2020-11-02] MEDS: Vancomycin HCl 750 MG in Sodium Chloride 0.9% 250 ML 250 ML IVPB SCH ×2 (16:50→18:16)
[2020-11-02] MEDS: Enoxaparin Sodium 30 MG/0.3 ML SYRINGE SC SCH (21:12)
[2020-11-02] MEDS: Tamsulosin HCl 0.4 MG CAP PO SCH (21:17)
[2020-11-02] MEDS: Lisinopril 10 MG TAB PO SCH (21:17)
[2020-11-02] MEDS: Atorvastatin Calcium 40 MG TAB PO SCH (21:17)
[2020-11-03] MEDS: traMADol HCl 50 MG TAB PO PRN ×3 (04:24→21:29)
[2020-11-03] MEDS: HumuLIN 70/30 (300 UNITS/3 ML VIAL) SC SCH ×2 (07:10→17:03)
[2020-11-03] MEDS: Docusate 100 MG CAP PO SCH ×2 (08:24→21:17)
[2020-11-03] MEDS: Aspirin 81 mg Enteric Coated Tablet PO SCH (08:24)
[2020-11-03] MEDS: Furosemide 80 MG TAB PO SCH ×2 (08:25→14:37)
[2020-11-03] MEDS: Isosorbide Dinitrate 20 MG TAB PO SCH ×3 (08:25→21:18)
[2020-11-03] MEDS: Spironolactone 25 MG TAB PO SCH (08:25)
[2020-11-03] MEDS: Carvedilol 6.25 MG TAB PO SCH ×2 (08:25→17:01)
[2020-11-03] MEDS: Cefepime 1 GM in Sodium Chloride 0.9% 100 ML IVPB SCH ×2 (08:26→21:18)
[2020-11-03] MEDS: HumaLOG 300 UNITS/3 ML VIAL SC PRN ×2 (12:05→17:02)
[2020-11-03 12:57] LABS: #Basophils 0.2 thou/uL (0.0-0.2); #Eosinphils 0.7 thou/uL (0.0-0.7); #Lymphocytes 1.3 thou/uL (1.20-3.40); #Monocytes 0.9 thou/uL (0.11-0.59); #Neutrophils 14.2 thou/uL (1.40-6.50); %Basophils 1.2 % (0.0-1.0); %Lymphocytes 7.3 % (21.0-51.0); %Monocytes 5.3 % (0.0-10.0); %Neutrophils 82.2 % (42.0-75.0); Hemoglobin 12.1 g/dL (14.0-18.0); Mean Corpuscular HGB CONC 32.5 g/dL (32.0-36.0); Mean Corpuscular Hemoglobin 28.1 pg (27.0-31.0); Mean Corpuscular Volume 86.6 fL (78.0-98.0); Mean Platelet Volume 9.3 fL (7.4-10.4); Platelet Count 317 thou/uL (130-400); RBC Distribution Width 12.5 % (11.5-14.5); Red Blood Cell (RBC) Count 4.31 mill/uL (4.70-6.10); White Blood Cell (WBC) Count 17.3 thou/uL (4.8-10.8)
[2020-11-03 16:23] LABS: Vancomycin, Trough 14.2 ug/mL
[2020-11-03] MEDS: Vancomycin HCl 750 MG in Sodium Chloride 0.9% 250 ML 250 ML IVPB SCH ×2 (17:02→18:10)
[2020-11-03] MEDS ORDERED: Sodium Chloride 0.9% 20 ML ONE (20:21)
[2020-11-03] MEDS: Enoxaparin Sodium 30 MG/0.3 ML SYRINGE SC SCH (21:16)
[2020-11-03] MEDS: Tamsulosin HCl 0.4 MG CAP PO SCH (21:17)
[2020-11-03] MEDS: Lisinopril 10 MG TAB PO SCH (21:17)
[2020-11-03] MEDS: Atorvastatin Calcium 40 MG TAB PO SCH (21:17)
[2020-11-04] MEDS: HumaLOG 300 UNITS/3 ML VIAL SC PRN ×2 (05:50→13:28)
[2020-11-04] MEDS: Furosemide 80 MG TAB PO SCH ×2 (09:07→13:28)
[2020-11-04] MEDS: Carvedilol 6.25 MG TAB PO SCH ×2 (09:07→17:24)
[2020-11-04] MEDS: Isosorbide Dinitrate 20 MG TAB PO SCH ×3 (09:07→21:04)
[2020-11-04] MEDS: Aspirin 81 mg Enteric Coated Tablet PO SCH (09:07)
[2020-11-04] MEDS: Docusate 100 MG CAP PO SCH ×2 (09:07→21:03)
[2020-11-04] MEDS: Cefepime 1 GM in Sodium Chloride 0.9% 100 ML IVPB SCH ×2 (09:08→20:59)
[2020-11-04] MEDS: HumuLIN 70/30 (300 UNITS/3 ML VIAL) SC SCH ×2 (09:08→17:27)
[2020-11-04] MEDS: Spironolactone 25 MG TAB PO SCH (09:08)
[2020-11-04 16:07] LABS: #Basophils 0.2 thou/uL (0.0-0.2); #Eosinphils 0.6 thou/uL (0.0-0.7); #Lymphocytes 1.4 thou/uL (1.20-3.40); #Neutrophils 15.5 thou/uL (1.40-6.50); %Eosinophils 3.1 % (0.0-10.0); %Lymphocytes 7.6 % (21.0-51.0); %Monocytes 5.2 % (0.0-10.0); %Neutrophils 83.2 % (42.0-75.0); Hemoglobin 13.2 g/dL (14.0-18.0); Mean Corpuscular HGB CONC 32.5 g/dL (32.0-36.0); Mean Corpuscular Hemoglobin 28.2 pg (27.0-31.0); Mean Corpuscular Volume 86.6 fL (78.0-98.0); Mean Platelet Volume 9.7 fL (7.4-10.4); Platelet Count 382 thou/uL (130-400); RBC Distribution Width 12.3 % (11.5-14.5); Red Blood Cell (RBC) Count 4.71 mill/uL (4.70-6.10); White Blood Cell (WBC) Count 18.6 thou/uL (4.8-10.8)
[2020-11-04 16:33] LABS: Vancomycin, Trough 16.2 ug/mL
[2020-11-04] MEDS: Vancomycin 1.5 GRAM/300 ML BAG 1.5 GM in Premix Bag 1 BAG IVPB SCH (17:24)
[2020-11-04] MEDS: Lisinopril 10 MG TAB PO SCH (21:04)
[2020-11-04] MEDS: Atorvastatin Calcium 40 MG TAB PO SCH (21:04)
[2020-11-04] MEDS: Enoxaparin Sodium 30 MG/0.3 ML SYRINGE SC SCH (21:04)
[2020-11-04] MEDS: Tamsulosin HCl 0.4 MG CAP PO SCH (21:04)
[2020-11-04] MEDS: traMADol HCl 50 MG TAB PO PRN (21:37)
[2020-11-05 05:19] LABS: #Basophils 0.2 thou/uL (0.0-0.2); #Eosinphils 0.7 thou/uL (0.0-0.7); #Lymphocytes 1.5 thou/uL (1.20-3.40); #Monocytes 1.3 thou/uL (0.11-0.59); #Neutrophils 11.8 thou/uL (1.40-6.50); %Basophils 1.6 % (0.0-1.0); %Eosinophils 4.2 % (0.0-10.0); %Lymphocytes 9.7 % (21.0-51.0); %Monocytes 8.6 % (0.0-10.0); Hemoglobin 12.9 g/dL (14.0-18.0); Mean Corpuscular HGB CONC 32.7 g/dL (32.0-36.0); Mean Corpuscular Hemoglobin 28.2 pg (27.0-31.0); Mean Corpuscular Volume 86.4 fL (78.0-98.0); Mean Platelet Volume 10.2 fL (7.4-10.4); Platelet Count 328 thou/uL (130-400); RBC Distribution Width 12.2 % (11.5-14.5); Red Blood Cell (RBC) Count 4.55 mill/uL (4.70-6.10); White Blood Cell (WBC) Count 15.5 thou/uL (4.8-10.8)
[2020-11-05 05:27] LABS: Anion Gap 15 mmol/L (10-20); BUN (Urea Nitrogen) 28 mg/dL (8.4-25.7); Calc. Creatinine Clearance 52 mL/min (70-130); Carbon Dioxide 31 mmol/L (23-31); Chloride 98 mmol/L (98-107); Glucose 133 mg/dL (80-115); Potassium 3.5 mmol/L (3.5-5.1); Sodium 140 mmol/L (136-145)
[2020-11-05] MEDS ORDERED: Sodium Chloride 0.9% 10 ML ONE (08:20)
[2020-11-05] MEDS: Cefepime 1 GM in Sodium Chloride 0.9% 100 ML IVPB SCH (08:24)
[2020-11-05] MEDS: Isosorbide Dinitrate 20 MG TAB PO SCH ×2 (08:24→15:01)
[2020-11-05] MEDS: Aspirin 81 mg Enteric Coated Tablet PO SCH (08:25)
[2020-11-05] MEDS: Carvedilol 6.25 MG TAB PO SCH ×2 (08:25→17:43)
[2020-11-05] MEDS: Furosemide 80 MG TAB PO SCH ×2 (08:25→15:01)
[2020-11-05] MEDS: Spironolactone 25 MG TAB PO SCH (08:25)
[2020-11-05] MEDS: Docusate 100 MG CAP PO SCH (08:25)
[2020-11-05] MEDS: HumuLIN 70/30 (300 UNITS/3 ML VIAL) SC SCH ×2 (08:26→17:42)
[2020-11-05] MEDS: HumaLOG 300 UNITS/3 ML VIAL SC PRN ×2 (12:02→17:42)
[2020-11-05 17:04] VITALS: BP 139/73; TEMP 96.7
[2020-11-05] MEDS: Vancomycin 1.5 GRAM/300 ML BAG 1.5 GM in Premix Bag 1 BAG IVPB SCH (17:43)
== END 2020-11-05 17:30 | disposition short-term general hospital (02) | DRG 872 ==
LOC: NAV ERS 14:48 → NAV ACUTE 18:47
PROVIDERS: ADMIT Internal Medicine; ATTEND Internal Medicine
DX: A41.9 Sepsis, unspecified organism (principal); L03.115 Cellulitis of right lower limb; I13.0 Hypertensive heart and chronic kidney disease with heart failure and stage 1 through stage 4 chronic kidney disease, or unspecified chronic kidney disease; I50.22 Chronic systolic (congestive) heart failure; M86.9 Osteomyelitis, unspecified; E78.5 Hyperlipidemia, unspecified; I25.10 Atherosclerotic heart disease of native coronary artery without angina pectoris; E11.22 Type 2 diabetes mellitus with diabetic chronic kidney disease; N18.31 Chronic kidney disease, stage 3a; E11.69 Type 2 diabetes mellitus with other specified complication; R25.1 Tremor, unspecified; N40.0 Benign prostatic hyperplasia without lower urinary tract symptoms; Z95.1 Presence of aortocoronary bypass graft; Z95.5 Presence of coronary angioplasty implant and graft; Z95.810 Presence of automatic (implantable) cardiac defibrillator; Z88.1 Allergy status to other antibiotic agents; Z88.5 Allergy status to narcotic agent; Z88.0 Allergy status to penicillin
CPT/HCPCS: 0240U; 36416; 80048; 80053; 80202; 83605; 85025; 85652; 86140; 87040; 96365; 96367; 96375; 97602; 36415-59; J0692; J1650; J1815; J1885; J3370; J3490; J7030; J7050